=== PATIENT | female | born 1960 | race Hispanic/Latino ===

== ENCOUNTER → 2017-12-21 | Outpatient (CLI) | payer OTHER ==
[2017-12-21 11:30] LABS: BASOPHILS % (AUTO) 1.3 % (0.0-5.0); EOSINOPHILS % (AUTO) 1.7 % (0.0-8.0); HEMATOCRIT 41.3 % (36-48); LYMPHOCYTES % (AUTO) 29.3 % (21.0-51.0); MEAN CORPUSCULAR HEMOGLOBIN 30.1 pg (27.0-33.0); MEAN CORPUSCULAR HGB CONC 33.9 g/dL (32.0-36.0); MEAN CORPUSCULAR VOLUME 88.7 fL (79-99); MONOCYTES % (AUTO) 8.3 % (3.0-13.0); NEUTROPHILS % (AUTO) 59.4 % (40.0-77.0); PLATELET COUNT (AUTO) 219 K/uL (130-400); RED BLOOD CELL COUNT(AUTO) 4.66 MIL/uL (4.00-5.50); RED CELL DISTRIBUTION WIDTH 13.4 % (11.0-15.5); WHITE BLOOD COUNT (AUTO) 6.1 K/uL (4.8-10.8)
[2017-12-21 11:33] LABS: CREATININE,URINE RANDOM 127 mg/dL (30-135)
[2017-12-21 11:49] LABS: HEMOGLOBIN A1C 6.2 % (4.0-6.0)
[2017-12-21 11:53] LABS: ALBUMIN 3.6 g/dL (3.5-5.0); BILIRUBIN,TOTAL 0.4 mg/dL (0.2-1.0); CREATININE 0.7 mg/dL (0.5-1.5); POTASSIUM 3.9 mmol/L (3.5-5.1); TOTAL PROTEIN, SERUM 6.8 g/dL (6.0-8.3)
[2017-12-21 11:54] LABS: BILIRUBIN,URINE NEGATIVE (NEGATIVE); COLOR,URINE YELLOW (YELLOW); GLUCOSE, URINE (UA) NEGATIVE (NEGATIVE); KETONES,URINE NEGATIVE (NEGATIVE); LEUKOCYTE ESTERASE ,URINE MODERATE (NEGATIVE); NITRATE,URINE POSITIVE (NEGATIVE); OCCULT BLOOD,URINE SMALL (NEGATIVE); PROTEIN,URINE NEGATIVE (NEGATIVE); UROBILINOGEN,URINE 0.2 mg/dL (0.2-1.0)
[2017-12-21 12:52] LABS: APPEARANCE,URINE CLOUDY (CLEAR)
[2017-12-21 12:54] LABS: BACTERIA,URINE Many /HPF (None Seen); RBC,URINE 0-1 /HPF (0-1); WBC,URINE TNTC /HPF (0-1)
[2017-12-22 07:23] LABS: HEPATITIS Bs ANTIGEN SCREEN P Negative (Negative)
== END | disposition home or self-care (01) ==
LOC: RAH 10:54
PROVIDERS: ATTEND Internal Medicine
DX: Z12.31 Encounter for screening mammogram for malignant neoplasm of breast (principal); Z02.89 Encounter for other administrative examinations; M54.9 Dorsalgia, unspecified; E04.9 Nontoxic goiter, unspecified; K76.0 Fatty (change of) liver, not elsewhere classified; E78.2 Mixed hyperlipidemia; R31.9 Hematuria, unspecified; R10.9 Unspecified abdominal pain; R73.09 Other abnormal glucose
CPT/HCPCS: 36415; 72072; 72100; 77067; 80053; 80061; 81001; 82043; 82570; 83036; 84443; 85025; 87088; 87186; 87340; 87520

== ENCOUNTER 2018-07-15 19:53 | Observation (INO) | payer OTHER ==
[~2018-07-15] VITALS: Ht 160 cm; Wt 110.2 kg
[2018-07-15 20:48] LABS: BASOPHILS % (AUTO) 1.3 % (0.0-5.0); EOSINOPHILS % (AUTO) 2.7 % (0.0-8.0); HEMATOCRIT 40.7 % (36-48); LYMPHOCYTES % (AUTO) 31.1 % (21.0-51.0); MEAN CORPUSCULAR HEMOGLOBIN 30.8 pg (27.0-33.0); MEAN CORPUSCULAR HGB CONC 34.1 g/dL (32.0-36.0); MEAN CORPUSCULAR VOLUME 90.4 fL (79-99); MONOCYTES % (AUTO) 8.1 % (3.0-13.0); NEUTROPHILS % (AUTO) 56.8 % (40.0-77.0); PLATELET COUNT (AUTO) 234 K/uL (130-400); RED BLOOD CELL COUNT(AUTO) 4.51 MIL/uL (4.00-5.50); RED CELL DISTRIBUTION WIDTH 13.5 % (11.0-15.5); WHITE BLOOD COUNT (AUTO) 8.3 K/uL (4.8-10.8)
[2018-07-15] MEDS ORDERED: NITROGLYCERIN 0.4 MG SL TAB SL ONE (20:48)
[2018-07-15] MEDS ORDERED: ASPIRIN 325 MG TABLET ONE (20:48)
[2018-07-15 20:57] LABS: CREATININE 0.8 mg/dL (0.5-1.5)
[2018-07-15 21:01] LABS: INR 0.95 (0.85-1.15); PARTIAL THROMBOPLASTIN TIME 29.5 SEC (26.3-35.5)
[2018-07-15 21:08] LABS: ALBUMIN 3.8 g/dL (3.5-5.0); BILIRUBIN,TOTAL 0.6 mg/dL (0.2-1.0); TOTAL PROTEIN, SERUM 7.1 g/dL (6.0-8.3)
[2018-07-16 01:26] LABS: CREATINE KINASE, TOTAL 53 U/L (21-232); MYOGLOBIN 24 ng/mL (10-92); TROPONIN I < 0.04 ng/mL (0.00-0.06)
[2018-07-16 05:15] LABS: CREATINE KINASE, TOTAL 61 U/L (21-232); MYOGLOBIN 25 ng/mL (10-92); TROPONIN I < 0.04 ng/mL (0.00-0.06)
[2018-07-16] MEDS ORDERED: ONDANSETRON HCL 4 MG/2 ML VIAL IV PRN (07:15)
[2018-07-16] MEDS ORDERED: ACETAMINOPHEN 325 MG TAB PO PRN (07:15)
[2018-07-16] MEDS ORDERED: POTASSIUM CHLORIDE 20MEQ/100ML 100 ML IV PRN ×2 (07:30)
[2018-07-16] MEDS ORDERED: POTASSIUM CHLORIDE 20 MEQ ERTAB PO PRN (07:30)
[2018-07-16] MEDS ORDERED: LIDOCAINE HCL-MPF 1% 2ML VIAL IVP PRN ×2 (07:30)
[2018-07-16] MEDS ORDERED: POTASSIUM CHLORIDE 10% ELIXIR 20 MEQ/15 ML UDCUP PO PRN (07:30)
[2018-07-16] MEDS ORDERED: CHOL500050 PO (07:57)
[2018-07-16] MEDS ORDERED: LORA10TA7 PO (08:20)
[2018-07-16] MEDS ORDERED: UBID200C37 PO (08:21)
[2018-07-16] MEDS ORDERED: CALC1TAB2 PO (08:22)
[2018-07-16] MEDS: PANTOPRAZOLE SODIUM 40 MG TABLET.DR PO SCH (09:00)
[2018-07-16] MEDS: ENOXAPARIN SODIUM 40 MG/0.4 ML SYRINGE SQ SCH (09:00)
[2018-07-16] MEDS ORDERED: ACETAMINOPHEN 325 MG TAB ONE (12:13)
[2018-07-16 14:16] VITALS: BP 124/69
[2018-07-16] MEDS ORDERED: REGADENOSON 0.4 MG/5 ML PF SYG IVP SCH (15:00)
[2018-07-16 17:00] VITALS: BP 129/80
[2018-07-16 20:00] VITALS: BP 130/60
[2018-07-16] MEDS: ACETAMINOPHEN 325 MG TAB PO PRN (20:21)
[2018-07-16] MEDS ORDERED: NITROGLYCERIN 1GM/1 INCH PACKET TD SCH (21:00)
[2018-07-17] VITALS: BP 99/67
[2018-07-17 03:57] VITALS: BP 116/56
[2018-07-17] MEDS: ACETAMINOPHEN 325 MG TAB PO PRN (06:39)
[2018-07-17 06:45] LABS: APPEARANCE,URINE Cloudy (CLEAR); BILIRUBIN,URINE Negative (NEGATIVE); COLOR,URINE Yellow (YELLOW); GLUCOSE, URINE (UA) Negative (NEGATIVE); KETONES,URINE Trace mg/dL (NEGATIVE); LEUKOCYTE ESTERASE ,URINE Moderate (NEGATIVE); NITRATE,URINE Positive (NEGATIVE); OCCULT BLOOD,URINE Large (NEGATIVE); PROTEIN,URINE Negative (NEGATIVE)
[2018-07-17 07:12] LABS: BACTERIA,URINE Many /HPF (None Seen); RBC,URINE 0-1 /HPF (0-1); SQUAMOUS EPITHELIAL CELL,UR Few /HPF (0-2)
[2018-07-17 08:00] VITALS: BP 97/56
[2018-07-17] MEDS ORDERED: LEVO500T2 PO (08:09)
[2018-07-17] MEDS ORDERED: LEVOFLOXACIN 750 MG TABLET PO SCH (09:00)
[2018-07-17] MEDS ORDERED: ASPIRIN 325MG EC TAB 325 MG TABLET.DR PO SCH (09:00)
[2018-07-17] MEDS: ENOXAPARIN SODIUM 40 MG/0.4 ML SYRINGE SQ SCH (10:04)
[2018-07-17] MEDS: PANTOPRAZOLE SODIUM 40 MG TABLET.DR PO SCH (10:04)
[2018-07-17 12:00] VITALS: BP 115/65
== END 2018-07-17 15:00 | disposition home or self-care (01) ==
LOC: EDH 19:53 → EDHIP 22:44 → 3BH 07-16 13:47
PROVIDERS: ADMIT Internal Medicine; ATTEND Internal Medicine
DX: R07.89 Other chest pain (principal); E78.2 Mixed hyperlipidemia; K21.9 Gastro-esophageal reflux disease without esophagitis; K76.0 Fatty (change of) liver, not elsewhere classified; E01.0 Iodine-deficiency related diffuse (endemic) goiter; E88.81 Metabolic syndrome and other insulin resistance; J30.9 Allergic rhinitis, unspecified; E66.01 Morbid (severe) obesity due to excess calories; M48.56XA Collapsed vertebra, not elsewhere classified, lumbar region, initial encounter for fracture; N39.0 Urinary tract infection, site not specified; Z68.42 Body mass index [BMI] 45.0-49.9, adult; Z82.3 Family history of stroke; Z82.49 Family history of ischemic heart disease and other diseases of the circulatory system; Z90.710 Acquired absence of both cervix and uterus
CPT/HCPCS: 36415; 71045; 78452; 80053; 81001; 82550; 83874; 84484; 85025; 85610; 85730; 93005; 93017; 96372; 96374; A9500; G0378; J1650; J2785

== ENCOUNTER → 2019-02-10 | Outpatient (CLI) | payer OTHER ==
[~2019-02-10] MED LIST: CALC1TAB2 PO; CHOL500050 PO; LEVO500T2 PO; LORA10TA7 PO; UBID200C37 PO
[2019-02-10 08:57] LABS: EOSINOPHILS % (AUTO) 1.5 % (0.0-8.0); LYMPHOCYTES % (AUTO) 27.8 % (21.0-51.0); MEAN CORPUSCULAR HEMOGLOBIN 29.7 pg (27.0-33.0); MEAN CORPUSCULAR HGB CONC 32.9 g/dL (32.0-36.0); MEAN CORPUSCULAR VOLUME 90.2 fL (79-99); MONOCYTES % (AUTO) 8.8 % (3.0-13.0); NEUTROPHILS % (AUTO) 60.9 % (40.0-77.0); PLATELET COUNT (AUTO) 243 K/uL (130-400); RED BLOOD CELL COUNT(AUTO) 4.32 MIL/uL (4.00-5.50); RED CELL DISTRIBUTION WIDTH 13.7 % (11.0-15.5)
[2019-02-10 09:12] LABS: HEMOGLOBIN A1C 6.1 % (4.0-6.0)
[2019-02-10 09:21] LABS: ALBUMIN 3.4 g/dL (3.5-5.0); BILIRUBIN,TOTAL 0.4 mg/dL (0.2-1.0); CREATININE 0.6 mg/dL (0.5-1.5); POTASSIUM 3.6 mmol/L (3.5-5.1); THYROID STIMULATING HORMONE 2.14 uIU/mL (0.36-3.74); TOTAL PROTEIN, SERUM 6.3 g/dL (6.0-8.3)
== END | disposition home or self-care (01) ==
LOC: RAH 08:17
PROVIDERS: ATTEND Internal Medicine
DX: Z12.31 Encounter for screening mammogram for malignant neoplasm of breast (principal); E78.2 Mixed hyperlipidemia; I95.9 Hypotension, unspecified; E04.9 Nontoxic goiter, unspecified; E55.9 Vitamin D deficiency, unspecified; E88.81 Metabolic syndrome and other insulin resistance; R51 Headache
CPT/HCPCS: 36415; 77067; 80053; 80061; 82043; 82306; 82570; 83036; 84443; 85025

== ENCOUNTER → 2019-05-13 | Outpatient (CLI) | payer OTHER ==
[2019-05-13 08:48] LABS: BASOPHILS % (AUTO) 0.4 % (0.0-5.0); EOSINOPHILS % (AUTO) 0.3 % (0.0-8.0); HEMATOCRIT 44.3 % (36-48); MEAN CORPUSCULAR HGB CONC 33.3 g/dL (32.0-36.0); MEAN CORPUSCULAR VOLUME 90.3 fL (79-99); MONOCYTES % (AUTO) 7.8 % (3.0-13.0); NEUTROPHILS % (AUTO) 79.5 % (40.0-77.0); PLATELET COUNT (AUTO) 255 K/uL (130-400); RED CELL DISTRIBUTION WIDTH 14.7 % (11.0-15.5); WHITE BLOOD COUNT (AUTO) 16.4 K/uL (4.8-10.8)
[2019-05-13 09:07] LABS: APPEARANCE,URINE Clear (CLEAR); BILIRUBIN,URINE Negative (NEGATIVE); COLOR,URINE Yellow (YELLOW); GLUCOSE, URINE (UA) Negative (NEGATIVE); KETONES,URINE Negative (NEGATIVE); LEUKOCYTE ESTERASE ,URINE Small (NEGATIVE); NITRATE,URINE Positive (NEGATIVE); OCCULT BLOOD,URINE Small (NEGATIVE); PROTEIN,URINE Negative (NEGATIVE)
[2019-05-13 09:08] LABS: ALBUMIN 3.4 g/dL (3.5-5.0); BILIRUBIN,TOTAL 0.4 mg/dL (0.2-1.0); CREATININE 0.7 mg/dL (0.5-1.5); THYROID STIMULATING HORMONE 1.11 uIU/mL (0.36-3.74); TOTAL PROTEIN, SERUM 6.6 g/dL (6.0-8.3)
[2019-05-13 09:38] LABS: BACTERIA,URINE Many /HPF (None Seen); RBC,URINE 0-1 /HPF (0-1)
[2019-05-13 09:39] LABS: CALCIUM OXALATE CRYSTALS,UR Few /LPF (None Seen); SQUAMOUS EPITHELIAL CELL,UR 0-2 /HPF (0-2)
[2019-05-13 10:07] LABS: ERYTHROCYTE SEDIMENTATION RATE 7 MM/HR (0-30)
== END | disposition home or self-care (01) ==
LOC: RAH 13:31
PROVIDERS: ATTEND Nurse Practitioner Family
DX: R05 Cough (principal); M47.815 Spondylosis without myelopathy or radiculopathy, thoracolumbar region
CPT/HCPCS: 36415; 71250; 80053; 80061; 81001; 84443; 85025; 85651; 87798

== ENCOUNTER 2019-05-24 10:12 | Emergency (ER) | payer OTHER ==
[2019-05-24 10:46] LABS: BILIRUBIN,URINE Negative (NEGATIVE); COLOR,URINE Yellow (YELLOW); GLUCOSE, URINE (UA) Negative (NEGATIVE); KETONES,URINE Negative (NEGATIVE); LEUKOCYTE ESTERASE ,URINE Moderate (NEGATIVE); NITRATE,URINE Positive (NEGATIVE); OCCULT BLOOD,URINE Trace (NEGATIVE); PH,URINE 8.5 (5.0-8.0); PROTEIN,URINE Negative (NEGATIVE)
[2019-05-24 10:48] LABS: APPEARANCE,URINE SLIGHTLY CLOUDY (CLEAR)
[2019-05-24] MEDS ORDERED: ACETAMINOPHEN EXTRA STRENGTH 500 MG TABLET ONE (10:56)
[2019-05-24] MEDS ORDERED: ONDANSETRON HCL 4 MG/2 ML VIAL ONE (10:56)
[2019-05-24] MEDS ORDERED: SODIUM CHLORIDE 0.9% 1000ML 1,000 ML IV ONE ×2 (10:57→11:51)
[2019-05-24 10:59] LABS: BACTERIA,URINE Moderate /HPF (None Seen); RBC,URINE 0-1 /HPF (0-1); SQUAMOUS EPITHELIAL CELL,UR 0-2 /HPF (0-2)
[2019-05-24 11:04] LABS: BASOPHILS % (AUTO) 0.5 % (0.0-5.0); EOSINOPHILS % (AUTO) 0.6 % (0.0-8.0); HEMATOCRIT 42.3 % (36-48); LYMPHOCYTES % (AUTO) 6.1 % (21.0-51.0); MEAN CORPUSCULAR HGB CONC 33.4 g/dL (32.0-36.0); MEAN CORPUSCULAR VOLUME 89.9 fL (79-99); MONOCYTES % (AUTO) 3.4 % (3.0-13.0); NEUTROPHILS % (AUTO) 89.4 % (40.0-77.0); PLATELET COUNT (AUTO) 189 K/uL (130-400); RED BLOOD CELL COUNT(AUTO) 4.71 MIL/uL (4.00-5.50); RED CELL DISTRIBUTION WIDTH 14.5 % (11.0-15.5); WHITE BLOOD COUNT (AUTO) 11.5 K/uL (4.8-10.8)
[2019-05-24] MEDS ORDERED: CEFTRIAXONE SODIUM 1 GM ONE (11:07)
[2019-05-24] MEDS ORDERED: SODIUM CHLORIDE 0.9% 100 ML IV ONE (11:07)
[2019-05-24 11:08] LABS: CREATININE 0.7 mg/dL (0.5-1.5); POTASSIUM 3.9 mmol/L (3.5-5.1)
[2019-05-24 11:13] LABS: ALBUMIN 3.7 g/dL (3.5-5.0); BILIRUBIN,TOTAL 0.7 mg/dL (0.2-1.0); TOTAL PROTEIN, SERUM 6.9 g/dL (6.0-8.3)
[2019-05-24] MEDS ORDERED: DiphenhydrAMINE HCL 50 MG/ML VIAL ONE (12:23)
[2019-05-24] MEDS ORDERED: KETOROLAC TROMETHAMINE 30MG/ML ONE (12:23)
== END 2019-05-24 13:42 | disposition home or self-care (01) ==
LOC: EDH 10:12
DX: N30.00 Acute cystitis without hematuria (principal); E78.00 Pure hypercholesterolemia, unspecified; Z90.710 Acquired absence of both cervix and uterus
CPT/HCPCS: 36415; 71046; 80053; 81001; 83605; 84145; 85025; 87040 ×2; 87077; 87088; 87186; 87804 ×2; 96374; 96375; 99285; J0696; J1200; J1885; J2405; J7030 ×2

== ENCOUNTER → 2020-06-09 | Outpatient (CLI) | payer OTHER | END | disposition home or self-care (01) | LOC: OIH 15:02 | PROVIDERS: ATTEND Internal Medicine | DX: M25.562 Pain in left knee (principal) | CPT/HCPCS: 73562 ==

== ENCOUNTER → 2020-06-10 | Outpatient (CLI) | payer OTHER ==
[2020-06-10 08:28] LABS: BASOPHILS % (AUTO) 1.1 % (0.0-5.0); EOSINOPHILS % (AUTO) 2.9 % (0.0-8.0); HEMATOCRIT 42.3 % (36-48); LYMPHOCYTES % (AUTO) 29.5 % (21.0-51.0); MEAN CORPUSCULAR HEMOGLOBIN 29.7 pg (27.0-33.0); MEAN CORPUSCULAR HGB CONC 32.4 g/dL (32.0-36.0); MEAN CORPUSCULAR VOLUME 91.6 fL (79-99); MONOCYTES % (AUTO) 8.2 % (3.0-13.0); PLATELET COUNT (AUTO) 236 K/uL (130-400); RED BLOOD CELL COUNT(AUTO) 4.62 MIL/uL (4.00-5.50); RED CELL DISTRIBUTION WIDTH 13.3 % (11.0-15.5); WHITE BLOOD COUNT (AUTO) 6.5 K/uL (4.8-10.8)
[2020-06-10 08:49] LABS: ALBUMIN 3.8 g/dL (3.5-5.0); BILIRUBIN,TOTAL 0.5 mg/dL (0.2-1.0); CREATININE 0.8 mg/dL (0.5-1.5); POTASSIUM 4.6 mmol/L (3.5-5.1); THYROID STIMULATING HORMONE 3.37 uIU/mL (0.36-3.74); TOTAL PROTEIN, SERUM 6.8 g/dL (6.0-8.3)
[2020-06-10 08:51] LABS: APPEARANCE,URINE TURBID (CLEAR); BILIRUBIN,URINE SMALL (NEGATIVE); COLOR,URINE YELLOW (YELLOW); GLUCOSE, URINE (UA) NEGATIVE (NEGATIVE); KETONES,URINE 5 mg/dL (NEGATIVE); LEUKOCYTE ESTERASE ,URINE MODERATE (NEGATIVE); NITRATE,URINE POSITIVE (NEGATIVE); OCCULT BLOOD,URINE MODERATE (NEGATIVE); PH,URINE 5.5 (5.0-8.0); PROTEIN,URINE 30 mg/dL (NEGATIVE); UROBILINOGEN,URINE 0.2 mg/dL (0.2-1.0)
[2020-06-10 09:18] LABS: BACTERIA,URINE Many /HPF (None Seen); CALCIUM OXALATE CRYSTALS,UR Few /LPF (None Seen); SQUAMOUS EPITHELIAL CELL,UR Few /HPF (0-2); WBC,URINE >100 /HPF (0-1)
[2020-06-10 09:45] LABS: ERYTHROCYTE SEDIMENTATION RATE 28 MM/HR (0-30)
== END | disposition home or self-care (01) ==
LOC: LAB 07:44
PROVIDERS: ATTEND Nurse Practitioner Family
DX: Z13.220 Encounter for screening for lipoid disorders (principal); Z13.29 Encounter for screening for other suspected endocrine disorder; Z13.21 Encounter for screening for nutritional disorder; J30.2 Other seasonal allergic rhinitis; I10 Essential (primary) hypertension
CPT/HCPCS: 36415; 80053; 80061; 81001; 82306; 84439; 84443; 85025; 85651; 87077; 87088; 87186

== ENCOUNTER → 2020-06-16 | Outpatient (CLI) | payer OTHER | END | disposition home or self-care (01) | LOC: LAB 11:11 | PROVIDERS: ATTEND Nurse Practitioner Family | DX: R50.9 Fever, unspecified (principal); Z20.828 Contact with and (suspected) exposure to other viral communicable diseases | CPT/HCPCS: 36415; C9803; U0003 ==

== ENCOUNTER → 2020-07-16 | Outpatient (CLI) | payer OTHER | END | disposition home or self-care (01) | LOC: RAH 09:40 | PROVIDERS: ATTEND Nurse Practitioner Family | DX: Z12.31 Encounter for screening mammogram for malignant neoplasm of breast (principal) | CPT/HCPCS: 77067 ==

== ENCOUNTER → 2020-09-07 | Outpatient (CLI) | payer OTHER ==
[2020-09-07 08:15] LABS: BASOPHILS % (AUTO) 0.9 % (0.0-5.0); EOSINOPHILS % (AUTO) 2.5 % (0.0-8.0); HEMATOCRIT 41.5 % (36-48); LYMPHOCYTES % (AUTO) 24.4 % (21.0-51.0); MEAN CORPUSCULAR HEMOGLOBIN 29.1 pg (27.0-33.0); MEAN CORPUSCULAR HGB CONC 31.8 g/dL (32.0-36.0); MEAN CORPUSCULAR VOLUME 91.6 fL (79-99); MONOCYTES % (AUTO) 7.8 % (3.0-13.0); NEUTROPHILS % (AUTO) 63.9 % (40.0-77.0); PLATELET COUNT (AUTO) 251 K/uL (130-400); RED BLOOD CELL COUNT(AUTO) 4.53 MIL/uL (4.00-5.50); RED CELL DISTRIBUTION WIDTH 13.2 % (11.0-15.5); WHITE BLOOD COUNT (AUTO) 7.5 K/uL (4.8-10.8)
[2020-09-07 08:53] LABS: ALBUMIN 3.5 g/dL (3.5-5.0); BILIRUBIN,TOTAL 0.3 mg/dL (0.2-1.0); CREATININE 0.8 mg/dL (0.5-1.5); POTASSIUM 4.5 mmol/L (3.5-5.1); TOTAL PROTEIN, SERUM 6.6 g/dL (6.0-8.3)
== END | disposition home or self-care (01) ==
LOC: LAB 07:35
PROVIDERS: ATTEND Internal Medicine Medical Oncology
DX: C7B.8 Other secondary neuroendocrine tumors (principal)
CPT/HCPCS: 36415; 80053; 85025

== ENCOUNTER → 2020-09-22 | Outpatient (CLI) | payer OTHER | END | disposition home or self-care (01) | LOC: RAH 12:53 | PROVIDERS: ATTEND Nurse Practitioner Family | DX: R92.2 Inconclusive mammogram (principal) | CPT/HCPCS: 76641; 77065 ==

== ENCOUNTER 2020-10-04 23:37 | Inpatient (IN) | payer OTHER ==
[~2020-10-04] VITALS: Ht 160 cm; Wt 117.0 kg
[2020-10-04] MEDS ORDERED: CEFTRIAXONE SODIUM 2 GM VIAL ONE (23:56)
[2020-10-04] MEDS ORDERED: ACETAMINOPHEN EXTRA STRENGTH 500 MG TABLET ONE (23:56)
[2020-10-04 23:58] LABS: APPEARANCE,URINE Cloudy (CLEAR); BILIRUBIN,URINE Negative (NEGATIVE); COLOR,URINE Yellow (YELLOW); GLUCOSE, URINE (UA) Negative (NEGATIVE); KETONES,URINE Negative (NEGATIVE); LEUKOCYTE ESTERASE ,URINE Large (NEGATIVE); NITRATE,URINE Positive (NEGATIVE); OCCULT BLOOD,URINE Moderate (NEGATIVE); PROTEIN,URINE Trace mg/dL (NEGATIVE); UROBILINOGEN,URINE 0.2 mg/dL (0.2-1.0)
[2020-10-05 00:08] LABS: BACTERIA,URINE Moderate /HPF (None Seen); WBC,URINE >100 /HPF (0-1)
[2020-10-05 00:30] LABS: CARBON DIOXIDE 26 mmol/L (21-32); CHLORIDE 104 mmol/L (101-111); GLOMERULAR FILTR. RATE CALC 60 mL/min (>60); GLUCOSE,RANDOM 140 mg/dL (70-105); POTASSIUM 4.4 mmol/L (3.5-5.1); SODIUM SERUM 139 mmol/L (136-145); UREA NITROGEN, BLOOD 16 mg/dL (7-18)
[2020-10-05 00:31] LABS: INR 0.95 (0.85-1.15); PROTHROMBIN TIME 10.4 SEC (9.6-11.6)
[2020-10-05 00:32] LABS: PARTIAL THROMBOPLASTIN TIME 25.4 SEC (26.3-35.5)
[2020-10-05 00:39] LABS: BASOPHILS % (AUTO) 0.6 % (0.0-5.0); EOSINOPHILS % (AUTO) 1.3 % (0.0-8.0); HEMATOCRIT 40.5 % (36-48); LYMPHOCYTES % (AUTO) 12.2 % (21.0-51.0); MEAN CORPUSCULAR HEMOGLOBIN 29.1 pg (27.0-33.0); MEAN CORPUSCULAR HGB CONC 32.1 g/dL (32.0-36.0); MEAN CORPUSCULAR VOLUME 90.6 fL (79-99); MONOCYTES % (AUTO) 6.4 % (3.0-13.0); NEUTROPHILS % (AUTO) 78.9 % (40.0-77.0); PLATELET COUNT (AUTO) 297 K/uL (130-400); RED BLOOD CELL COUNT(AUTO) 4.47 MIL/uL (4.00-5.50); RED CELL DISTRIBUTION WIDTH 13.1 % (11.0-15.5); WHITE BLOOD COUNT (AUTO) 13.5 K/uL (4.8-10.8)
[2020-10-05 00:41] LABS: ALANINE AMINOTRANSFERASE 24 U/L (12-78); ALBUMIN 3.7 g/dL (3.5-5.0); ASPARTATE AMINOTRANSFERASE 18 U/L (10-37); BILIRUBIN,TOTAL 0.2 mg/dL (0.2-1.0); CREATINE KINASE, TOTAL 53 U/L (21-232); MYOGLOBIN 19 ng/mL (10-92); TOTAL PROTEIN, SERUM 6.9 g/dL (6.0-8.3); TROPONIN I < 0.04 ng/mL (0.00-0.06)
[2020-10-05 01:02] LABS: B-TYPE NATRIURETIC PEPTIDE 9 pg/mL (0-100)
[2020-10-05] MEDS ORDERED: SODIUM CHLORIDE 0.9% 1000ML 1,000 ML IV ONE ×2 (01:25→05:51)
[2020-10-05] MEDS ORDERED: ONDANSETRON HCL 4 MG/2 ML VIAL ONE (01:58)
[2020-10-05] MEDS ORDERED: MORPHINE SULFATE 4 MG/1ML SYG ONE (01:58)
[2020-10-05] MEDS ORDERED: HYDROMORPHONE 1 MG/1 ML AMP IV PRN (02:45)
[2020-10-05] MEDS ORDERED: MORPHINE SULFATE 2 MG/ML 1ML SYG IV PRN (02:45)
[2020-10-05] MEDS ORDERED: LACTULOSE 20 GM/30 ML UDCUP PO PRN (02:45)
[2020-10-05] MEDS ORDERED: NITROGLYCERIN 0.4 MG SL TAB SL PRN (02:45)
[2020-10-05] MEDS ORDERED: MAG HYDROX/AL HYDROX/SIMETH ES 30 ML SUSP UDCUP PO PRN (02:45)
[2020-10-05] MEDS ORDERED: DIPHENHYDRAMINE HCL 25 MG CAPSULE PO PRN (02:45)
[2020-10-05] MEDS ORDERED: ACETAMINOPHEN 325 MG TAB PO PRN ×2 (02:45)
[2020-10-05] MEDS ORDERED: GUAIFENESIN-DM 200/20 MG 10 ML PO PRN (02:45)
[2020-10-05] MEDS ORDERED: DiphenhydrAMINE HCL 50 MG/ML VIAL IV PRN (02:45)
[2020-10-05] MEDS ORDERED: ONDANSETRON HCL 4 MG/2 ML VIAL IV PRN (02:45)
[2020-10-05] MEDS ORDERED: ZOSYN 3.375GM+NS 50ML 50 ML IV SCH (05:00)
[2020-10-05] MEDS ORDERED: MORPHINE SULFATE 2 MG/ML 1ML SYG ONE (05:00)
[2020-10-05] MEDS ORDERED: DiphenhydrAMINE HCL 50 MG/ML VIAL ONE (05:50)
[2020-10-05] MEDS ORDERED: METHYLPREDNISOLONE SOD SUCC 125MG/2ML VIAL ONE ×2 (05:53→05:54)
[2020-10-05] MEDS ORDERED: EPINEPHRINE 1 MG/ML AMPULE ONE (05:53)
[2020-10-05] MEDS ORDERED: IPRATROPIUM/ALBUTEROL SULFATE 3 ML SOLUTION IH ONE (05:55)
[2020-10-05 06:25] LABS: BASOPHILS % (AUTO) 0.4 % (0.0-5.0); EOSINOPHILS % (AUTO) 0.6 % (0.0-8.0); HEMATOCRIT 39.9 % (36-48); LYMPHOCYTES % (AUTO) 28.4 % (21.0-51.0); MEAN CORPUSCULAR HEMOGLOBIN 28.8 pg (27.0-33.0); MEAN CORPUSCULAR HGB CONC 31.6 g/dL (32.0-36.0); MEAN CORPUSCULAR VOLUME 91.3 fL (79-99); MONOCYTES % (AUTO) 0.4 % (3.0-13.0); NEUTROPHILS % (AUTO) 69.6 % (40.0-77.0); PLATELET COUNT (AUTO) 221 K/uL (130-400); RED BLOOD CELL COUNT(AUTO) 4.37 MIL/uL (4.00-5.50); RED CELL DISTRIBUTION WIDTH 13.2 % (11.0-15.5); WHITE BLOOD COUNT (AUTO) 5.3 K/uL (4.8-10.8)
[2020-10-05 06:57] LABS: ALBUMIN 3.4 g/dL (3.5-5.0); BILIRUBIN,TOTAL 0.5 mg/dL (0.2-1.0); CREATININE 1.2 mg/dL (0.5-1.5); POTASSIUM 4.2 mmol/L (3.5-5.1); TOTAL PROTEIN, SERUM 6.5 g/dL (6.0-8.3)
[2020-10-05] MEDS ORDERED: PHARMACY COMMUNICATION MISC SCH (07:45)
[2020-10-05] MEDS ORDERED: LACTATED RINGERS 1000ML 500 ML IV ONE (08:00)
[2020-10-05] MEDS ORDERED: ENOXAPARIN SODIUM 30 MG/0.3 ML SQ ONE (08:07)
[2020-10-05] MEDS ORDERED: METRONIDAZOLE 500MG/100ML BAG 100 ML ONE ×2 (08:08→16:52)
[2020-10-05] MEDS ORDERED: FAMOTIDINE/PF 20 MG/2 ML VIAL IV ONE (08:08)
[2020-10-05] MEDS ORDERED: LACTATED RINGERS 1000ML 1,000 ML IV ONE ×3 (08:09→18:08)
[2020-10-05] MEDS ORDERED: METRONIDAZOLE 500MG/100ML BAG 100 ML IVPB SCH (08:15)
[2020-10-05 08:19] LABS: ABG BASE EXCESS -4.7 mmol/L (-2.0-3.0); ABG HCO3 18.7 mmol/L (21.0-28.0); ABG OXYGEN SATURATION 93.2 % (95.0-99.0); ABG PCO2 30 mmHg (32-45)
[2020-10-05] MEDS ORDERED: LEVOFLOXACIN 250 MG/D5W 50ML 50 ML IVPB SCH (09:00)
[2020-10-05] MEDS ORDERED: PANT40TA54 PO (12:27)
[2020-10-05] MEDS: LACTATED RINGERS 1000ML 1,000 ML IV SCH (12:45)
[2020-10-05] MEDS ORDERED: SODIUM CHLORIDE 0.9% 100 ML IV ONE (16:52)
[2020-10-05] MEDS ORDERED: MEROPENEM 1 GM VIAL ONE (16:52)
[2020-10-05] MEDS ORDERED: ACETAMINOPHEN 325 MG TAB ONE (18:49)
[2020-10-06] VITALS (12 sets, daily range): BP systolic 85–117; BP diastolic 42–63
[2020-10-06] MEDS ORDERED: MEROPENEM 1 GM VIAL ONE (02:07)
[2020-10-06] MEDS ORDERED: METRONIDAZOLE 500MG/100ML BAG 100 ML ONE (02:07)
[2020-10-06] MEDS ORDERED: LACTATED RINGERS 1000ML 1,000 ML IV ONE (02:08)
[2020-10-06] MEDS: MEROPENEM 1 GM VIAL IVP SCH ×3 (02:45→19:39)
[2020-10-06] MEDS: LACTATED RINGERS 1000ML 1,000 ML IV SCH ×3 (06:26→23:03)
[2020-10-06 06:50] LABS: BASOPHILS % (AUTO) 0.1 % (0.0-5.0); EOSINOPHILS % (AUTO) 0.1 % (0.0-8.0); HEMATOCRIT 34.8 % (36-48); MEAN CORPUSCULAR HEMOGLOBIN 28.6 pg (27.0-33.0); MEAN CORPUSCULAR HGB CONC 31.6 g/dL (32.0-36.0); MEAN CORPUSCULAR VOLUME 90.6 fL (79-99); MONOCYTES % (AUTO) 6.2 % (3.0-13.0); NEUTROPHILS % (AUTO) 86.7 % (40.0-77.0); PLATELET COUNT (AUTO) 205 K/uL (130-400); RED BLOOD CELL COUNT(AUTO) 3.84 MIL/uL (4.00-5.50); RED CELL DISTRIBUTION WIDTH 13.6 % (11.0-15.5); WHITE BLOOD COUNT (AUTO) 17.4 K/uL (4.8-10.8)
[2020-10-06 07:08] LABS: BILIRUBIN,TOTAL 0.5 mg/dL (0.2-1.0); CREATININE 0.7 mg/dL (0.5-1.5); TOTAL PROTEIN, SERUM 6.2 g/dL (6.0-8.3)
[2020-10-06 07:15] LABS: CRP QUANTITATIVE 179.9 mg/L (0.00-9.0)
[2020-10-06] MEDS ORDERED: LIDOCAINE HCL 1% MDV 50ML VIAL ONE (12:28)
[2020-10-06] MEDS ORDERED: SODIUM BICARB 50MEQ 50ML VIAL 50 ML ONE (12:29)
[2020-10-06] MEDS ORDERED: IODIXANOL 320 MG/ML 100 ML VIAL ONE (12:36)
[2020-10-06] MEDS ORDERED: MIDAZOLAM HCL 1 MG/ML 2ML VIAL ONE (13:13)
[2020-10-06] MEDS ORDERED: FENTANYL CITRATE PF 50 MCG/1 ML 2ML VIAL ONE ×2 (13:13→14:07)
[2020-10-06] MEDS ORDERED: KETOROLAC TROMETHAMINE 30MG/ML ONE ×2 (17:13→23:00)
[2020-10-06] MEDS ORDERED: HYDROMORPHONE HCL 0.5 MG/0.5 ML ML IVP PRN (17:15)
[2020-10-07] MEDS: MEROPENEM 1 GM VIAL IVP SCH ×2 (02:26→10:46)
[2020-10-07 04:00] VITALS: BP 135/72
[2020-10-07 04:49] LABS: BASOPHILS % (AUTO) 0.3 % (0.0-5.0); EOSINOPHILS % (AUTO) 1.4 % (0.0-8.0); HEMATOCRIT 34.7 % (36-48); MEAN CORPUSCULAR HGB CONC 32.3 g/dL (32.0-36.0); MEAN CORPUSCULAR VOLUME 89.9 fL (79-99); MONOCYTES % (AUTO) 7.9 % (3.0-13.0); NEUTROPHILS % (AUTO) 77.7 % (40.0-77.0); PLATELET COUNT (AUTO) 192 K/uL (130-400); RED BLOOD CELL COUNT(AUTO) 3.86 MIL/uL (4.00-5.50); RED CELL DISTRIBUTION WIDTH 13.4 % (11.0-15.5); WHITE BLOOD COUNT (AUTO) 11.7 K/uL (4.8-10.8)
[2020-10-07 05:10] LABS: ALBUMIN 2.8 g/dL (3.5-5.0); BILIRUBIN,TOTAL 0.4 mg/dL (0.2-1.0); CREATININE 0.7 mg/dL (0.5-1.5); CRP QUANTITATIVE 111.5 mg/L (0.00-9.0); TOTAL PROTEIN, SERUM 5.9 g/dL (6.0-8.3)
[2020-10-07 08:18] VITALS: BP 144/75
[2020-10-07] MEDS: KETOROLAC TROMETHAMINE 15MG/ML IV PRN ×3 (09:18→21:35)
[2020-10-07 12:03] VITALS: BP 110/65
[2020-10-07] MEDS: LACTATED RINGERS 1000ML 1,000 ML IV SCH (15:40)
[2020-10-07 16:43] VITALS: BP 133/74
[2020-10-07 21:55] VITALS: BP 135/76
[2020-10-08 01:24] VITALS: BP 139/66
[2020-10-08] MEDS: KETOROLAC TROMETHAMINE 15MG/ML IV PRN (04:21)
[2020-10-08 04:37] LABS: BASOPHILS % (AUTO) 0.6 % (0.0-5.0); EOSINOPHILS % (AUTO) 2.1 % (0.0-8.0); HEMATOCRIT 36.7 % (36-48); LYMPHOCYTES % (AUTO) 19.6 % (21.0-51.0); MEAN CORPUSCULAR HEMOGLOBIN 28.6 pg (27.0-33.0); MEAN CORPUSCULAR HGB CONC 32.2 g/dL (32.0-36.0); MEAN CORPUSCULAR VOLUME 88.9 fL (79-99); MONOCYTES % (AUTO) 7.8 % (3.0-13.0); PLATELET COUNT (AUTO) 219 K/uL (130-400); RED BLOOD CELL COUNT(AUTO) 4.13 MIL/uL (4.00-5.50); RED CELL DISTRIBUTION WIDTH 13.2 % (11.0-15.5); WHITE BLOOD COUNT (AUTO) 8.7 K/uL (4.8-10.8)
[2020-10-08 04:57] LABS: ALBUMIN 2.8 g/dL (3.5-5.0); BILIRUBIN,TOTAL 0.3 mg/dL (0.2-1.0); CREATININE 0.6 mg/dL (0.5-1.5); CRP QUANTITATIVE 86.7 mg/L (0.00-9.0); POTASSIUM 4.1 mmol/L (3.5-5.1)
[2020-10-08 06:05] VITALS: BP 140/72
[2020-10-08 08:11] VITALS: BP 140/66
[2020-10-08] MEDS ORDERED: LEVOFLOXACIN 750 MG/D5W 150 ML 150 ML IV SCH (09:00)
[2020-10-08] MEDS ORDERED: TRAMADOL HCL 50 MG TABLET PO PRN (10:00)
[2020-10-08 12:27] VITALS: BP 137/58
[2020-10-08] MEDS ORDERED: ONDANSETRON HCL 4 MG/2 ML VIAL IVP PRN (16:00)
[2020-10-08 16:24] VITALS: BP 135/59
== END 2020-10-08 18:15 | disposition home or self-care (01) | DRG 872 ==
LOC: EDH 23:37 → EDHIP 10-05 02:38 → 4BH 10-06 05:52
PROVIDERS: ADMIT Family Medicine; ATTEND Family Medicine
PROC: 0T9030Z Drainage of Right Kidney with Drainage Device, Percutaneous Approach (ICD-10-PCS; principal; 2020-10-06)
DX: A41.50 Gram-negative sepsis, unspecified (principal); N13.6 Pyonephrosis; Z68.42 Body mass index [BMI] 45.0-49.9, adult; N17.9 Acute kidney failure, unspecified; T88.6XXA Anaphylactic reaction due to adverse effect of correct drug or medicament properly administered, initial encounter; I10 Essential (primary) hypertension; E78.5 Hyperlipidemia, unspecified; Z20.822 Contact with and (suspected) exposure to COVID-19; Z87.891 Personal history of nicotine dependence; E78.00 Pure hypercholesterolemia, unspecified; Z90.2 Acquired absence of lung [part of]; Z85.118 Personal history of other malignant neoplasm of bronchus and lung; E11.9 Type 2 diabetes mellitus without complications; B96.1 Klebsiella pneumoniae [K. pneumoniae] as the cause of diseases classified elsewhere; E66.01 Morbid (severe) obesity due to excess calories; T36.0X5A Adverse effect of penicillins, initial encounter; Y92.89 Other specified places as the place of occurrence of the external cause; Z87.442 Personal history of urinary calculi
CPT/HCPCS: 10030; 36415; 36600; 50432; 71045; 74176; 80053; 81001; 82550; 82803; 82948; 83605; 83874; 83880; 84145; 84484; 85025; 85610; 85730; 86140; 86900; 86901; 87040; 87071; 87077; 87088; 87186; 87205; 87426; 93005; 99156; 99157; C1729; C1769; G0378; J0171; J0696; J1200; J1644; J1650; J1885; J1956; J2185; J2250; J2270; J2405; J2930; J3010; J3490; J7030; J7120; Q9967

== ENCOUNTER → 2020-10-21 | Outpatient (CLI) | payer OTHER ==
[~2020-10-21] MED LIST changes: -CALC1TAB2 PO; -CHOL500050 PO; -LEVO500T2 PO; +PANT40TA54 PO; -UBID200C37 PO
[2020-10-21 13:38] LABS: BASOPHILS % (AUTO) 2.1 % (0.0-5.0); EOSINOPHILS % (AUTO) 5.4 % (0.0-8.0); HEMATOCRIT 39.9 % (36-48); LYMPHOCYTES % (AUTO) 28.9 % (21.0-51.0); MEAN CORPUSCULAR HEMOGLOBIN 28.9 pg (27.0-33.0); MEAN CORPUSCULAR HGB CONC 32.3 g/dL (32.0-36.0); MEAN CORPUSCULAR VOLUME 89.3 fL (79-99); MONOCYTES % (AUTO) 8.7 % (3.0-13.0); NEUTROPHILS % (AUTO) 54.3 % (40.0-77.0); PLATELET COUNT (AUTO) 300 K/uL (130-400); RED BLOOD CELL COUNT(AUTO) 4.47 MIL/uL (4.00-5.50); RED CELL DISTRIBUTION WIDTH 13.2 % (11.0-15.5); WHITE BLOOD COUNT (AUTO) 6.7 K/uL (4.8-10.8)
[2020-10-21 14:20] LABS: ALBUMIN 3.5 g/dL (3.5-5.0); BILIRUBIN,TOTAL 0.4 mg/dL (0.2-1.0); CREATININE 0.7 mg/dL (0.5-1.5); POTASSIUM 4.2 mmol/L (3.5-5.1); TOTAL PROTEIN, SERUM 7.4 g/dL (6.0-8.3)
[2020-10-21 14:41] LABS: ERYTHROCYTE SEDIMENTATION RATE 33 MM/HR (0-30)
== END | disposition home or self-care (01) ==
LOC: LAB 13:00
PROVIDERS: ATTEND Nurse Practitioner Family
DX: A41.9 Sepsis, unspecified organism (principal); N20.0 Calculus of kidney
CPT/HCPCS: 36415; 80053; 85025; 85651

== ENCOUNTER → 2020-10-28 | Outpatient (CLI) | payer OTHER | END | disposition home or self-care (01) | LOC: RAH 13:06 | PROVIDERS: ATTEND Urology | DX: N20.0 Calculus of kidney (principal); I87.8 Other specified disorders of veins | CPT/HCPCS: 74018; 76100 ==

== ENCOUNTER 2020-11-04 12:18 | Day surgery (SDC) | payer OTHER ==
[2020-10-28 15:50] LABS: BASOPHILS % (AUTO) 1.3 % (0.0-5.0); EOSINOPHILS % (AUTO) 4.6 % (0.0-8.0); HEMATOCRIT 41.7 % (36-48); LYMPHOCYTES % (AUTO) 26.8 % (21.0-51.0); MEAN CORPUSCULAR HEMOGLOBIN 28.7 pg (27.0-33.0); MEAN CORPUSCULAR HGB CONC 31.9 g/dL (32.0-36.0); MEAN CORPUSCULAR VOLUME 90.1 fL (79-99); MONOCYTES % (AUTO) 7.2 % (3.0-13.0); NEUTROPHILS % (AUTO) 59.7 % (40.0-77.0); PLATELET COUNT (AUTO) 296 K/uL (130-400); RED BLOOD CELL COUNT(AUTO) 4.63 MIL/uL (4.00-5.50); RED CELL DISTRIBUTION WIDTH 13.3 % (11.0-15.5); WHITE BLOOD COUNT (AUTO) 7.5 K/uL (4.8-10.8)
[2020-10-28 15:53] LABS: APPEARANCE,URINE Clear (CLEAR); BILIRUBIN,URINE Negative (NEGATIVE); COLOR,URINE Yellow (YELLOW); GLUCOSE, URINE (UA) Negative (NEGATIVE); KETONES,URINE Negative (NEGATIVE); LEUKOCYTE ESTERASE ,URINE Small (NEGATIVE); NITRATE,URINE Negative (NEGATIVE); OCCULT BLOOD,URINE Large (NEGATIVE); PH,URINE 5.5 (5.0-8.0); PROTEIN,URINE Negative (NEGATIVE); UROBILINOGEN,URINE 0.2 mg/dL (0.2-1.0)
[2020-10-28 16:05] LABS: BACTERIA,URINE Rare /HPF (None Seen)
[2020-10-28 16:06] LABS: MUCUS,URINE Rare LPF (None Seen); SQUAMOUS EPITHELIAL CELL,UR Few /HPF (0-2)
[2020-10-28 16:06] LABS: INR 0.98 (0.85-1.15); PROTHROMBIN TIME 10.7 SEC (9.6-11.6)
[2020-10-28 16:08] LABS: PARTIAL THROMBOPLASTIN TIME 27.6 SEC (26.3-35.5)
[2020-10-28 16:13] LABS: BILIRUBIN,TOTAL 0.5 mg/dL (0.2-1.0); CREATININE 0.7 mg/dL (0.5-1.5); POTASSIUM 3.9 mmol/L (3.5-5.1); TOTAL PROTEIN, SERUM 7.4 g/dL (6.0-8.3)
[~2020-11-04] VITALS: Ht 101.6 cm; Wt 114.0 kg
[2020-11-04] VITALS (13 sets, daily range): BP systolic 120–144; BP diastolic 64–80
[~2020-11-04 12:18] MED LIST changes: +CEFAZOLIN SODIUM 1 GM VIAL IVP SCH; +LACTATED RINGERS 1000ML 1,000 ML IV SCH; -LORA10TA7 PO; -PANT40TA54 PO
[2020-11-04] MEDS: LACTATED RINGERS 1000ML 1,000 ML IV SCH ×3 (12:29→16:28)
[2020-11-04] MEDS: LEVOFLOXACIN 500 MG/D5W 100 ML 100 ML IV PRN ×2 (12:29→15:23)
[2020-11-04] MEDS ORDERED: SUCCINYLCHOLINE 200MG/10ML SYR ONE (14:09)
[2020-11-04] MEDS ORDERED: ONDANSETRON HCL 4 MG/2 ML VIAL ONE (14:09)
[2020-11-04] MEDS ORDERED: MIDAZOLAM HCL 1 MG/ML 2ML VIAL ONE (14:09)
[2020-11-04] MEDS ORDERED: DEXAMETHASONE SOD PHOSPHATE 10MG/ML 1ML VIAL ONE (14:09)
[2020-11-04] MEDS ORDERED: LIDOCAINE PF 2% 5ML ABBOJECT ONE (14:09)
[2020-11-04] MEDS ORDERED: PROPOFOL 10 MG/ML 20ML VIAL IV ONE (14:09)
[2020-11-04] MEDS ORDERED: GLYCOPYRROLATE 1 MG/5 ML SYRINGE ONE (14:09)
[2020-11-04] MEDS ORDERED: NEOSTIGMINE 5MG/5ML SYR IV ONE (14:09)
[2020-11-04] MEDS ORDERED: ROCURONIUM 10MG/1ML SYR 10 MG/ML ML ONE (14:10)
[2020-11-04] MEDS ORDERED: FENTANYL CITRATE PF 50 MCG/1 ML 2ML VIAL ONE (14:10)
[2020-11-04] MEDS ORDERED: VANCOMYCIN 500MG+NS 100ML 100 ML IV PRN (16:15)
== END 2020-11-04 18:00 | disposition home or self-care (01) ==
LOC: DAH 12:18
PROVIDERS: ATTEND Urology
DX: N20.2 Calculus of kidney with calculus of ureter (principal); E66.01 Morbid (severe) obesity due to excess calories; Z85.118 Personal history of other malignant neoplasm of bronchus and lung; Z79.899 Other long term (current) drug therapy; Z20.828 Contact with and (suspected) exposure to other viral communicable diseases; Z79.01 Long term (current) use of anticoagulants
CPT/HCPCS: 36415; 50590; 71046; 80053; 81001; 85025; 85610; 85730; 87077; 87088; 87186; 93005; A4215; A4221; A4222; A4223; A4663; C9803; J0330; J1100; J2001; J2250; J2405; J2704; J2710; J3010; J3490; J7120 ×3; U0003; J1956

== ENCOUNTER → 2020-11-17 | Outpatient (CLI) | payer OTHER | END | disposition home or self-care (01) | LOC: RAH 15:32 | PROVIDERS: ATTEND Urology | DX: N20.0 Calculus of kidney (principal); Z87.442 Personal history of urinary calculi | CPT/HCPCS: 74018; 76100 ==

== ENCOUNTER 2020-11-22 14:49 | Inpatient (IN) | payer OTHER ==
[~2020-11-22] VITALS: Ht 160 cm; Wt 115.2 kg
[2020-11-22] MEDS ORDERED: KETOROLAC TROMETHAMINE 30MG/ML ONE (16:40)
[2020-11-22 16:55] LABS: BASOPHILS % (AUTO) 0.6 % (0.0-5.0); EOSINOPHILS % (AUTO) 2.2 % (0.0-8.0); HEMATOCRIT 40.8 % (36-48); LYMPHOCYTES % (AUTO) 9.8 % (21.0-51.0); MEAN CORPUSCULAR HEMOGLOBIN 29.1 pg (27.0-33.0); MEAN CORPUSCULAR HGB CONC 33.3 g/dL (32.0-36.0); MEAN CORPUSCULAR VOLUME 87.2 fL (79-99); MONOCYTES % (AUTO) 5.8 % (3.0-13.0); PLATELET COUNT (AUTO) 304 K/uL (130-400); RED BLOOD CELL COUNT(AUTO) 4.68 MIL/uL (4.00-5.50); RED CELL DISTRIBUTION WIDTH 13.4 % (11.0-15.5); WHITE BLOOD COUNT (AUTO) 12.5 K/uL (4.8-10.8)
[2020-11-22 17:02] LABS: CREATININE 0.7 mg/dL (0.5-1.5); POTASSIUM 3.9 mmol/L (3.5-5.1)
[2020-11-22 17:03] LABS: APPEARANCE,URINE Cloudy (CLEAR); BILIRUBIN,URINE Negative (NEGATIVE); COLOR,URINE Yellow (YELLOW); GLUCOSE, URINE (UA) Negative (NEGATIVE); KETONES,URINE Negative (NEGATIVE); LEUKOCYTE ESTERASE ,URINE Large (NEGATIVE); NITRATE,URINE Positive (NEGATIVE); OCCULT BLOOD,URINE Moderate (NEGATIVE); PH,URINE 5.5 (5.0-8.0); PROTEIN,URINE Negative (NEGATIVE)
[2020-11-22 17:06] LABS: ALBUMIN 3.7 g/dL (3.5-5.0); BILIRUBIN,TOTAL 0.6 mg/dL (0.2-1.0); TOTAL PROTEIN, SERUM 7.5 g/dL (6.0-8.3)
[2020-11-22 17:16] LABS: BACTERIA,URINE Few /HPF (None Seen); SQUAMOUS EPITHELIAL CELL,UR Few /HPF (0-2)
[2020-11-22] MEDS ORDERED: LEVOFLOXACIN 500 MG/D5W 100 ML 100 ML ONE (17:59)
[2020-11-22] MEDS ORDERED: ACETAMINOPHEN 325 MG TAB PO PRN (20:00)
[2020-11-22] MEDS ORDERED: LACTULOSE 20 GM/30 ML UDCUP PO PRN (20:00)
[2020-11-22] MEDS ORDERED: DIPHENHYDRAMINE HCL 25 MG CAPSULE PO PRN (20:00)
[2020-11-22] MEDS ORDERED: LACTATED RINGERS 1000ML 1,000 ML IV SCH (20:00)
[2020-11-22] MEDS ORDERED: ONDANSETRON HCL 4 MG/2 ML VIAL IV PRN (20:00)
[2020-11-22] MEDS ORDERED: MAG HYDROX/AL HYDROX/SIMETH ES 30 ML SUSP UDCUP PO PRN (20:00)
[2020-11-22] MEDS ORDERED: NITROGLYCERIN 0.4 MG SL TAB SL PRN (20:00)
[2020-11-22] MEDS ORDERED: DiphenhydrAMINE HCL 50 MG/ML VIAL IV PRN (20:00)
[2020-11-22] MEDS ORDERED: HEPARIN SODIUM 5000UNIT/ML 1ML VIAL ONE (21:11)
[2020-11-22] MEDS ORDERED: FAMOTIDINE 20MG TAB 20 MG TAB ONE (21:11)
[2020-11-22] MEDS ORDERED: DOXYCYCLINE 100MG+NS 250ML 250 ML IV ONE (21:11)
[2020-11-22] MEDS ORDERED: TRAMADOL HCL 50 MG TABLET ONE (21:12)
[2020-11-22] MEDS: FAMOTIDINE 20MG TAB 20 MG TAB PO SCH (22:05)
[2020-11-22] MEDS: HEPARIN SODIUM 5000UNIT/ML 1ML VIAL SQ SCH (22:05)
[2020-11-22 23:23] VITALS: BP 143/69
[2020-11-23 00:18] VITALS: BP 137/64
[2020-11-23] MEDS: ACETAMINOPHEN 325 MG TAB PO PRN (01:56)
[2020-11-23] MEDS: GUAIFENESIN-DM 200/20 MG 10 ML PO PRN ×2 (02:13→23:50)
[2020-11-23 04:36] VITALS: BP 126/47
[2020-11-23 07:25] VITALS: BP 124/64
[2020-11-23] MEDS: DOXYCYCLINE 100MG+NS 250ML 250 ML IV SCH ×2 (07:26→18:24)
[2020-11-23] MEDS ORDERED: LEVOFLOXACIN 750 MG/D5W 150 ML 150 ML IV SCH (09:00)
[2020-11-23] MEDS: IMMUNE DEFENSE PO SCH ×2 (09:00→14:11)
[2020-11-23] MEDS: CETIRIZINE HCL 5 MG TABLET PO SCH (09:05)
[2020-11-23] MEDS: TRAMADOL HCL 50 MG TABLET PO PRN (09:06)
[2020-11-23] MEDS: PANTOPRAZOLE SODIUM 40 MG TABLET.DR PO SCH (09:06)
[2020-11-23] MEDS: FAMOTIDINE 20MG TAB 20 MG TAB PO SCH ×2 (09:06→21:38)
[2020-11-23] MEDS: HEPARIN SODIUM 5000UNIT/ML 1ML VIAL SQ SCH ×2 (09:37→21:40)
[2020-11-23 11:18] VITALS: BP 124/58
[2020-11-23 12:41] LABS: BASOPHILS % (AUTO) 0.8 % (0.0-5.0); EOSINOPHILS % (AUTO) 3.2 % (0.0-8.0); HEMATOCRIT 34.2 % (36-48); LYMPHOCYTES % (AUTO) 22.2 % (21.0-51.0); MEAN CORPUSCULAR HEMOGLOBIN 28.9 pg (27.0-33.0); MEAN CORPUSCULAR HGB CONC 32.7 g/dL (32.0-36.0); MEAN CORPUSCULAR VOLUME 88.4 fL (79-99); NEUTROPHILS % (AUTO) 61.3 % (40.0-77.0); PLATELET COUNT (AUTO) 226 K/uL (130-400); RED BLOOD CELL COUNT(AUTO) 3.87 MIL/uL (4.00-5.50); RED CELL DISTRIBUTION WIDTH 13.4 % (11.0-15.5); WHITE BLOOD COUNT (AUTO) 7.4 K/uL (4.8-10.8)
[2020-11-23 13:03] LABS: CREATININE 0.3 mg/dL (0.5-1.5); POTASSIUM 3.6 mmol/L (3.5-5.1)
[2020-11-23] MEDS ORDERED: NAPROXEN 500 MG TABLET PO SCH (13:30)
[2020-11-23 16:25] VITALS: BP 126/60
[2020-11-23 19:32] VITALS: BP 107/62
[2020-11-23] MEDS ORDERED: [UNRECOGNIZED DRUG - OTHER] PO (23:59)
[2020-11-24] VITALS (7 sets, daily range): BP systolic 117–152; BP diastolic 57–93
[2020-11-24] MEDS: KETOROLAC TROMETHAMINE 15MG/ML IV SCH ×2 (02:22→20:29)
[2020-11-24] MEDS: LACTATED RINGERS 1000ML 1,000 ML IV SCH ×3 (02:22→22:15)
[2020-11-24 05:35] LABS: EOSINOPHILS % (AUTO) 5.3 % (0.0-8.0); HEMATOCRIT 36.5 % (36-48); LYMPHOCYTES % (AUTO) 23.3 % (21.0-51.0); MEAN CORPUSCULAR HEMOGLOBIN 28.1 pg (27.0-33.0); MEAN CORPUSCULAR HGB CONC 31.5 g/dL (32.0-36.0); MEAN CORPUSCULAR VOLUME 89.2 fL (79-99); MONOCYTES % (AUTO) 9.2 % (3.0-13.0); NEUTROPHILS % (AUTO) 60.8 % (40.0-77.0); PLATELET COUNT (AUTO) 244 K/uL (130-400); RED BLOOD CELL COUNT(AUTO) 4.09 MIL/uL (4.00-5.50); RED CELL DISTRIBUTION WIDTH 13.2 % (11.0-15.5)
[2020-11-24 05:38] LABS: INR 1.06 (0.85-1.15); PROTHROMBIN TIME 11.5 SEC (9.6-11.6)
[2020-11-24 05:39] LABS: PARTIAL THROMBOPLASTIN TIME 30.1 SEC (26.3-35.5)
[2020-11-24 05:42] LABS: CREATININE 0.7 mg/dL (0.5-1.5); POTASSIUM 3.9 mmol/L (3.5-5.1)
[2020-11-24] MEDS: DOXYCYCLINE 100MG+NS 250ML 250 ML IV SCH (06:37)
[2020-11-24] MEDS: HEPARIN SODIUM 5000UNIT/ML 1ML VIAL SQ SCH ×2 (09:00→20:59)
[2020-11-24] MEDS: CETIRIZINE HCL 5 MG TABLET PO SCH (09:00)
[2020-11-24] MEDS: FAMOTIDINE 20MG TAB 20 MG TAB PO SCH ×2 (09:00→20:53)
[2020-11-24] MEDS: PANTOPRAZOLE SODIUM 40 MG TABLET.DR PO SCH (09:00)
[2020-11-24] MEDS: IMMUNE DEFENSE PO SCH (09:00)
[2020-11-24] MEDS: MEROPENEM 1 GM VIAL IVP SCH ×2 (10:14→17:28)
[2020-11-24] MEDS ORDERED: LIDOCAINE HCL 1% MDV 50ML VIAL ONE (10:26)
[2020-11-24] MEDS ORDERED: IODIXANOL 320 MG/ML 100 ML VIAL ONE (10:26)
[2020-11-24] MEDS ORDERED: ROCURONIUM 10MG/1ML SYR 10 MG/ML ML ONE (10:51)
[2020-11-24] MEDS ORDERED: PHENYLEPHRINE HCL 10 MG/ML 1ML VIAL IV ONE (10:51)
[2020-11-24] MEDS ORDERED: LIDOCAINE PF 2% 5ML ABBOJECT ONE (10:51)
[2020-11-24] MEDS ORDERED: PROPOFOL 10 MG/ML 20ML VIAL IV ONE (10:51)
[2020-11-24] MEDS ORDERED: EPHEDRINE SULFATE 50 MG/ML AMPULE ONE (10:51)
[2020-11-24] MEDS ORDERED: SUCCINYLCHOLINE CHLORIDE 20 MG/ML 10 ML VIAL ONE (10:51)
[2020-11-24] MEDS ORDERED: FENTANYL CITRATE PF 50 MCG/1 ML 2ML VIAL ONE ×2 (10:52→12:30)
[2020-11-24] MEDS ORDERED: KETAMINE 50MG/ML SYRINGE 50 MG/ML DISP.SYRIN IV ONE (11:13)
[2020-11-24] MEDS ORDERED: MIDAZOLAM HCL 1 MG/ML 2ML VIAL ONE ×3 (11:18→12:44)
[2020-11-24] MEDS: TRAMADOL HCL 50 MG TABLET PO PRN ×2 (13:59→21:27)
[2020-11-24] MEDS: ACETAMINOPHEN 325 MG TAB PO PRN (19:05)
[2020-11-25] MEDS: MEROPENEM 1 GM VIAL IVP SCH ×3 (01:50→18:12)
[2020-11-25 02:00] VITALS: BP 122/54
[2020-11-25] MEDS: TRAMADOL HCL 50 MG TABLET PO PRN ×3 (03:45→19:46)
[2020-11-25] MEDS: LACTATED RINGERS 1000ML 1,000 ML IV SCH (04:51)
[2020-11-25 07:50] VITALS: BP 137/64
[2020-11-25 09:07] LABS: BASOPHILS % (AUTO) 0.7 % (0.0-5.0); EOSINOPHILS % (AUTO) 1.3 % (0.0-8.0); HEMATOCRIT 35.2 % (36-48); LYMPHOCYTES % (AUTO) 15.3 % (21.0-51.0); MEAN CORPUSCULAR HEMOGLOBIN 28.6 pg (27.0-33.0); MEAN CORPUSCULAR VOLUME 86.7 fL (79-99); MONOCYTES % (AUTO) 10.2 % (3.0-13.0); NEUTROPHILS % (AUTO) 71.8 % (40.0-77.0); PLATELET COUNT (AUTO) 272 K/uL (130-400); RED BLOOD CELL COUNT(AUTO) 4.06 MIL/uL (4.00-5.50); RED CELL DISTRIBUTION WIDTH 13.2 % (11.0-15.5); WHITE BLOOD COUNT (AUTO) 9.2 K/uL (4.8-10.8)
[2020-11-25 09:28] LABS: CREATININE 0.7 mg/dL (0.5-1.5)
[2020-11-25] MEDS: FAMOTIDINE 20MG TAB 20 MG TAB PO SCH ×2 (09:46→21:26)
[2020-11-25] MEDS: CETIRIZINE HCL 5 MG TABLET PO SCH (09:46)
[2020-11-25] MEDS: PANTOPRAZOLE SODIUM 40 MG TABLET.DR PO SCH (09:46)
[2020-11-25] MEDS: HEPARIN SODIUM 5000UNIT/ML 1ML VIAL SQ SCH ×2 (09:48→21:28)
[2020-11-25] MEDS: IMMUNE DEFENSE PO SCH (09:50)
[2020-11-25 11:25] VITALS: BP 119/56
[2020-11-25 16:20] VITALS: BP 123/61
[2020-11-25 19:46] VITALS: BP 133/76
[2020-11-25] MEDS ORDERED: MORPHINE SULFATE 2 MG/ML 1ML SYG IM PRN (22:00)
[2020-11-25] MEDS: ACETAMINOPHEN 325 MG TAB PO PRN (22:34)
[2020-11-25] MEDS: GUAIFENESIN-DM 200/20 MG 10 ML PO PRN (23:03)
[2020-11-25 23:32] VITALS: BP 152/86
[2020-11-26] VITALS (7 sets, daily range): BP systolic 122–136; BP diastolic 74–82
[2020-11-26] MEDS: LACTATED RINGERS 1000ML 1,000 ML IV SCH ×4 (00:15→22:06)
[2020-11-26] MEDS: MEROPENEM 1 GM VIAL IVP SCH ×3 (01:32→18:32)
[2020-11-26] MEDS: TRAMADOL HCL 50 MG TABLET PO PRN ×2 (02:14→22:25)
[2020-11-26] MEDS: ACETAMINOPHEN 325 MG TAB PO PRN ×2 (05:20→15:34)
[2020-11-26] MEDS: HEPARIN SODIUM 5000UNIT/ML 1ML VIAL SQ SCH ×2 (09:24→21:05)
[2020-11-26] MEDS: PANTOPRAZOLE SODIUM 40 MG TABLET.DR PO SCH (09:27)
[2020-11-26] MEDS: CETIRIZINE HCL 5 MG TABLET PO SCH (09:27)
[2020-11-26] MEDS: FAMOTIDINE 20MG TAB 20 MG TAB PO SCH ×2 (09:27→21:03)
[2020-11-26] MEDS: GUAIFENESIN-DM 200/20 MG 10 ML PO PRN (18:39)
[2020-11-26] MEDS: NAPROXEN 500 MG TABLET PO PRN (21:05)
[2020-11-27] MEDS: MEROPENEM 1 GM VIAL IVP SCH ×3 (01:59→17:19)
[2020-11-27 02:30] VITALS: BP 141/64
[2020-11-27] MEDS: CETIRIZINE HCL 5 MG TABLET PO SCH (08:44)
[2020-11-27] MEDS: PANTOPRAZOLE SODIUM 40 MG TABLET.DR PO SCH (08:44)
[2020-11-27] MEDS: FAMOTIDINE 20MG TAB 20 MG TAB PO SCH ×2 (08:44→19:47)
[2020-11-27] MEDS: HEPARIN SODIUM 5000UNIT/ML 1ML VIAL SQ SCH ×2 (08:46→19:57)
[2020-11-27 08:57] VITALS: BP 130/77
[2020-11-27] MEDS: IMMUNE DEFENSE PO SCH (09:00)
[2020-11-27] MEDS: LACTATED RINGERS 1000ML 1,000 ML IV SCH ×2 (09:04→17:54)
[2020-11-27 11:55] VITALS: BP 135/81
[2020-11-27 15:45] VITALS: BP 112/77
[2020-11-27 17:30] VITALS: BP 144/62
[2020-11-27] MEDS: GUAIFENESIN-DM 200/20 MG 10 ML PO PRN (19:47)
[2020-11-27] MEDS ORDERED: NAPROXEN 250 MG TAB ONE (19:50)
[2020-11-27 20:04] VITALS: BP 133/57
[2020-11-28] VITALS (7 sets, daily range): BP systolic 103–138; BP diastolic 35–52
[2020-11-28] MEDS: MEROPENEM 1 GM VIAL IVP SCH ×3 (00:52→18:07)
[2020-11-28] MEDS: LACTATED RINGERS 1000ML 1,000 ML IV SCH ×2 (03:12→16:05)
[2020-11-28 05:39] LABS: BASOPHILS % (AUTO) 0.9 % (0.0-5.0); EOSINOPHILS % (AUTO) 10.4 % (0.0-8.0); HEMATOCRIT 33.5 % (36-48); MEAN CORPUSCULAR HGB CONC 31.6 g/dL (32.0-36.0); MEAN CORPUSCULAR VOLUME 88.4 fL (79-99); NEUTROPHILS % (AUTO) 55.1 % (40.0-77.0); PLATELET COUNT (AUTO) 293 K/uL (130-400); RED BLOOD CELL COUNT(AUTO) 3.79 MIL/uL (4.00-5.50); RED CELL DISTRIBUTION WIDTH 13.2 % (11.0-15.5); WHITE BLOOD COUNT (AUTO) 6.5 K/uL (4.8-10.8)
[2020-11-28 05:55] LABS: ALBUMIN 2.5 g/dL (3.5-5.0); BILIRUBIN,TOTAL 0.3 mg/dL (0.2-1.0); CREATININE 0.5 mg/dL (0.5-1.5); CRP QUANTITATIVE 117.8 mg/L (0.00-9.0); POTASSIUM 3.8 mmol/L (3.5-5.1); TOTAL PROTEIN, SERUM 5.7 g/dL (6.0-8.3)
[2020-11-28 06:42] LABS: ERYTHROCYTE SEDIMENTATION RATE 74 MM/HR (0-30)
[2020-11-28] MEDS: IMMUNE DEFENSE PO SCH (09:00)
[2020-11-28] MEDS: FAMOTIDINE 20MG TAB 20 MG TAB PO SCH ×2 (09:44→19:55)
[2020-11-28] MEDS: PANTOPRAZOLE SODIUM 40 MG TABLET.DR PO SCH (09:44)
[2020-11-28] MEDS: CETIRIZINE HCL 5 MG TABLET PO SCH (09:44)
[2020-11-28] MEDS: HEPARIN SODIUM 5000UNIT/ML 1ML VIAL SQ SCH ×2 (09:46→19:56)
[2020-11-28] MEDS: GUAIFENESIN-DM 200/20 MG 10 ML PO PRN (09:57)
[2020-11-28] MEDS: NAPROXEN 500 MG TABLET PO PRN (16:26)
[2020-11-29] VITALS (14 sets, daily range): BP systolic 103–140; BP diastolic 37–89
[2020-11-29] MEDS: MEROPENEM 1 GM VIAL IVP SCH ×3 (01:02→18:41)
[2020-11-29] MEDS: LACTATED RINGERS 1000ML 1,000 ML IV SCH ×3 (01:03→20:03)
[2020-11-29 05:34] LABS: BASOPHILS % (AUTO) 1.2 % (0.0-5.0); EOSINOPHILS % (AUTO) 11.5 % (0.0-8.0); HEMATOCRIT 31.5 % (36-48); LYMPHOCYTES % (AUTO) 25.3 % (21.0-51.0); MEAN CORPUSCULAR HEMOGLOBIN 29.1 pg (27.0-33.0); MONOCYTES % (AUTO) 9.4 % (3.0-13.0); NEUTROPHILS % (AUTO) 52.1 % (40.0-77.0); PLATELET COUNT (AUTO) 263 K/uL (130-400); RED BLOOD CELL COUNT(AUTO) 3.58 MIL/uL (4.00-5.50); RED CELL DISTRIBUTION WIDTH 13.4 % (11.0-15.5); WHITE BLOOD COUNT (AUTO) 5.7 K/uL (4.8-10.8)
[2020-11-29 06:02] LABS: ALBUMIN 2.5 g/dL (3.5-5.0); BILIRUBIN,TOTAL 0.3 mg/dL (0.2-1.0); CREATININE 0.5 mg/dL (0.5-1.5); POTASSIUM 3.8 mmol/L (3.5-5.1); TOTAL PROTEIN, SERUM 5.4 g/dL (6.0-8.3)
[2020-11-29] MEDS: HEPARIN SODIUM 5000UNIT/ML 1ML VIAL SQ SCH ×2 (09:00→20:04)
[2020-11-29] MEDS: IMMUNE DEFENSE PO SCH (09:00)
[2020-11-29] MEDS: CETIRIZINE HCL 5 MG TABLET PO SCH (09:00)
[2020-11-29] MEDS: FAMOTIDINE 20MG TAB 20 MG TAB PO SCH ×2 (09:00→20:03)
[2020-11-29] MEDS: PANTOPRAZOLE SODIUM 40 MG TABLET.DR PO SCH (09:00)
[2020-11-29] MEDS ORDERED: IODIXANOL 320 MG/ML 100 ML VIAL ONE (12:20)
[2020-11-29] MEDS ORDERED: LIDOCAINE HCL 1% MDV 50ML VIAL ONE (12:21)
[2020-11-29 12:42] LABS: PROTHROMBIN TIME 10.9 SEC (9.6-11.6)
[2020-11-29 12:43] LABS: PARTIAL THROMBOPLASTIN TIME 26.2 SEC (26.3-35.5)
[2020-11-29] MEDS: GUAIFENESIN-DM 200/20 MG 10 ML PO PRN (21:33)
[2020-11-30 00:24] VITALS: BP 106/50
[2020-11-30] MEDS: MEROPENEM 1 GM VIAL IVP SCH ×2 (01:09→09:49)
[2020-11-30 04:24] VITALS: BP 134/70
[2020-11-30 05:50] LABS: BASOPHILS % (AUTO) 1.2 % (0.0-5.0); EOSINOPHILS % (AUTO) 9.9 % (0.0-8.0); LYMPHOCYTES % (AUTO) 27.1 % (21.0-51.0); MEAN CORPUSCULAR HEMOGLOBIN 27.6 pg (27.0-33.0); MEAN CORPUSCULAR HGB CONC 31.4 g/dL (32.0-36.0); MONOCYTES % (AUTO) 8.6 % (3.0-13.0); NEUTROPHILS % (AUTO) 52.3 % (40.0-77.0); PLATELET COUNT (AUTO) 348 K/uL (130-400); RED BLOOD CELL COUNT(AUTO) 4.09 MIL/uL (4.00-5.50); RED CELL DISTRIBUTION WIDTH 13.4 % (11.0-15.5)
[2020-11-30 06:17] LABS: ALBUMIN 2.8 g/dL (3.5-5.0); BILIRUBIN,TOTAL 0.3 mg/dL (0.2-1.0); CREATININE 0.7 mg/dL (0.5-1.5); CRP QUANTITATIVE 53.3 mg/L (0.00-9.0); POTASSIUM 4.1 mmol/L (3.5-5.1); TOTAL PROTEIN, SERUM 6.1 g/dL (6.0-8.3)
[2020-11-30 06:42] LABS: ERYTHROCYTE SEDIMENTATION RATE 52 MM/HR (0-30)
[2020-11-30 07:46] VITALS: BP 130/59
[2020-11-30] MEDS: IMMUNE DEFENSE PO SCH (09:00)
[2020-11-30] MEDS: FAMOTIDINE 20MG TAB 20 MG TAB PO SCH (09:49)
[2020-11-30] MEDS: CETIRIZINE HCL 5 MG TABLET PO SCH (09:49)
[2020-11-30] MEDS: PANTOPRAZOLE SODIUM 40 MG TABLET.DR PO SCH (09:49)
[2020-11-30] MEDS: HEPARIN SODIUM 5000UNIT/ML 1ML VIAL SQ SCH (10:00)
[2020-11-30 11:23] VITALS: BP 130/59
[2020-11-30] MEDS: NAPROXEN 500 MG TABLET PO PRN (12:13)
[2020-11-30 15:50] VITALS: BP 140/63
== END 2020-11-30 17:00 | disposition home or self-care (01) | DRG 654 ==
LOC: EDH 14:49 → EDHIP 19:55 → WSH 22:08 → 3CH 11-27 17:52
PROVIDERS: ADMIT Family Medicine; ATTEND Family Medicine
PROC: 0T9030Z Drainage of Right Kidney with Drainage Device, Percutaneous Approach (ICD-10-PCS; principal; 2020-11-22)
PROC: 0T7B3DZ Dilation of Bladder with Intraluminal Device, Percutaneous Approach (ICD-10-PCS; 2020-11-29)
PROC: 0TP5X0Z Removal of Drainage Device from Kidney, External Approach (ICD-10-PCS; 2020-11-29)
DX: N13.6 Pyonephrosis (principal); Z16.24 Resistance to multiple antibiotics; Z68.42 Body mass index [BMI] 45.0-49.9, adult; E11.9 Type 2 diabetes mellitus without complications; E66.9 Obesity, unspecified; E78.00 Pure hypercholesterolemia, unspecified; E78.5 Hyperlipidemia, unspecified; I10 Essential (primary) hypertension; Z85.118 Personal history of other malignant neoplasm of bronchus and lung; Z87.442 Personal history of urinary calculi; Z87.891 Personal history of nicotine dependence; Z90.710 Acquired absence of both cervix and uterus; Z93.6 Other artificial openings of urinary tract status; Z88.0 Allergy status to penicillin; Z20.822 Contact with and (suspected) exposure to COVID-19
CPT/HCPCS: 36415; 50431; 50693; 74176; 80048; 80053; 81001; 83690; 84145; 84484; 85025; 85610; 85651; 85730; 86140; 87077; 87088; 87186; 87426; 93005; C1725; C1729; C1769; C1773; C1894; G0378; J0330; J1644; J1885; J1956; J2001; J2185; J2250; J2370; J2704; J3010; J3490; J7120; Q9967; U0003

== ENCOUNTER 2020-12-01 09:21 | Day surgery (SDC) | payer OTHER ==
[~2020-12-01 09:21] MED LIST changes: -CEFAZOLIN SODIUM 1 GM VIAL IVP SCH; -LACTATED RINGERS 1000ML 1,000 ML IV SCH; +[UNRECOGNIZED DRUG - OTHER] PO
[2020-12-01 09:50] VITALS: BP 129/54
[2020-12-01] MEDS ORDERED: PHARMACY COMMUNICATION MISC SCH (10:00)
[2020-12-01] MEDS ORDERED: SODIUM CHLORIDE 0.9% IV SCH (10:25)
[2020-12-01] MEDS ORDERED: ERTAPENEM SODIUM IV SCH (10:25)
[2020-12-01 13:50] VITALS: BP 124/62
== END 2020-12-01 14:05 | disposition home or self-care (01) ==
LOC: DAH 09:21
PROVIDERS: ATTEND Internal Medicine
DX: A49.8 Other bacterial infections of unspecified site (principal); I10 Essential (primary) hypertension; E78.00 Pure hypercholesterolemia, unspecified; E11.9 Type 2 diabetes mellitus without complications; Z87.891 Personal history of nicotine dependence; Z90.710 Acquired absence of both cervix and uterus; Z79.899 Other long term (current) drug therapy
CPT/HCPCS: 96365; 96366; A4216; A4222; A4223 ×2; A4663; J1335

== ENCOUNTER 2020-12-02 08:49 | Day surgery (SDC) | payer OTHER ==
[~2020-12-02] VITALS: Ht 160 cm; Wt 113.2 kg
[2020-12-02 09:07] VITALS: BP 123/55
[2020-12-02] MEDS ORDERED: INVANZ 1GM+NS 50ML IVPB 50 ML IV ONE (09:38)
[2020-12-02 10:40] VITALS: BP 128/62
[2020-12-03] MEDS ORDERED: ERTAPENEM SODIUM IM SCH (09:00)
[2020-12-03] MEDS ORDERED: SODIUM CHLORIDE 0.9% IM SCH (09:00)
== END 2020-12-02 10:45 | disposition home or self-care (01) ==
LOC: DAH 08:49
PROVIDERS: ATTEND Internal Medicine
DX: A49.8 Other bacterial infections of unspecified site (principal); I10 Essential (primary) hypertension; E78.00 Pure hypercholesterolemia, unspecified; E11.9 Type 2 diabetes mellitus without complications; Z87.891 Personal history of nicotine dependence; Z79.899 Other long term (current) drug therapy; Z90.710 Acquired absence of both cervix and uterus
CPT/HCPCS: 96365; A4216; A4222; A4223; A4606; A4663; J1335

== ENCOUNTER 2020-12-03 08:20 | Day surgery (SDC) | payer OTHER ==
[~2020-12-03] VITALS: Ht 160 cm; Wt 113.4 kg
[2020-12-03 08:56] VITALS: BP 135/65
[2020-12-03] MEDS ORDERED: ERTAPENEM SODIUM IV SCH (09:45)
[2020-12-03] MEDS ORDERED: SODIUM CHLORIDE 0.9% IV SCH (09:45)
[2020-12-03 11:20] VITALS: BP 128/64
== END 2020-12-03 11:25 | disposition home or self-care (01) ==
LOC: DAH 08:20
PROVIDERS: ATTEND Internal Medicine
DX: A49.8 Other bacterial infections of unspecified site (principal); N20.0 Calculus of kidney; I10 Essential (primary) hypertension; E78.00 Pure hypercholesterolemia, unspecified; E11.9 Type 2 diabetes mellitus without complications; E78.5 Hyperlipidemia, unspecified; Z79.01 Long term (current) use of anticoagulants; Z90.710 Acquired absence of both cervix and uterus; Z79.899 Other long term (current) drug therapy; Z87.891 Personal history of nicotine dependence
CPT/HCPCS: 74176; 96365; A4223; A4606; A4663; J1335

== ENCOUNTER 2020-12-06 09:06 | Day surgery (SDC) | payer OTHER ==
[~2020-12-06] VITALS: Ht 160 cm; Wt 113.4 kg
[2020-12-06 09:30] VITALS: BP 140/69
[2020-12-06] MEDS ORDERED: [UNRECOGNIZED DRUG - OTHER] IV SCH (09:45)
[2020-12-06] MEDS ORDERED: ERTAPENEM SODIUM IV SCH (09:45)
[2020-12-06] MEDS ORDERED: PANT40TA54 PO (10:56)
[2020-12-06] MEDS ORDERED: CETI-89 PO (10:57)
[2020-12-07] MEDS ORDERED: ERTAPENEM SODIUM IV SCH (08:00)
[2020-12-07] MEDS ORDERED: [UNRECOGNIZED DRUG - OTHER] IV SCH (08:00)
== END 2020-12-06 11:00 | disposition home or self-care (01) ==
LOC: DAH 09:06
PROVIDERS: ATTEND Internal Medicine
DX: N39.0 Urinary tract infection, site not specified (principal); B96.20 Unspecified Escherichia coli [E. coli] as the cause of diseases classified elsewhere; I10 Essential (primary) hypertension; E78.5 Hyperlipidemia, unspecified; E78.00 Pure hypercholesterolemia, unspecified; E11.9 Type 2 diabetes mellitus without complications; Z87.891 Personal history of nicotine dependence; Z79.899 Other long term (current) drug therapy; Z90.710 Acquired absence of both cervix and uterus; Z85.118 Personal history of other malignant neoplasm of bronchus and lung
CPT/HCPCS: 96365; A4216; J1335; 96523

== ENCOUNTER 2020-12-07 09:56 | Observation (INO) | payer OTHER ==
[2020-12-03 12:42] LABS: BASOPHILS % (AUTO) 1.1 % (0.0-5.0); EOSINOPHILS % (AUTO) 7.9 % (0.0-8.0); HEMATOCRIT 37.7 % (36-48); LYMPHOCYTES % (AUTO) 29.3 % (21.0-51.0); MEAN CORPUSCULAR HEMOGLOBIN 28.6 pg (27.0-33.0); MEAN CORPUSCULAR HGB CONC 32.4 g/dL (32.0-36.0); MEAN CORPUSCULAR VOLUME 88.5 fL (79-99); MONOCYTES % (AUTO) 8.2 % (3.0-13.0); NEUTROPHILS % (AUTO) 52.4 % (40.0-77.0); PLATELET COUNT (AUTO) 352 K/uL (130-400); RED BLOOD CELL COUNT(AUTO) 4.26 MIL/uL (4.00-5.50); RED CELL DISTRIBUTION WIDTH 13.6 % (11.0-15.5); WHITE BLOOD COUNT (AUTO) 7.9 K/uL (4.8-10.8)
[2020-12-03 12:45] LABS: APPEARANCE,URINE CLEAR (CLEAR); BILIRUBIN,URINE NEGATIVE (NEGATIVE); COLOR,URINE YELLOW (YELLOW); GLUCOSE, URINE (UA) NEGATIVE (NEGATIVE); KETONES,URINE NEGATIVE (NEGATIVE); LEUKOCYTE ESTERASE ,URINE MODERATE (NEGATIVE); NITRATE,URINE NEGATIVE (NEGATIVE); OCCULT BLOOD,URINE LARGE (NEGATIVE); PH,URINE 7.5 (5.0-8.0); PROTEIN,URINE 100 mg/dL (NEGATIVE); UROBILINOGEN,URINE 0.2 mg/dL (0.2-1.0)
[2020-12-03 13:03] LABS: ALBUMIN 3.5 g/dL (3.5-5.0); BILIRUBIN,TOTAL 0.3 mg/dL (0.2-1.0); CREATININE 0.7 mg/dL (0.5-1.5); POTASSIUM 4.2 mmol/L (3.5-5.1); TOTAL PROTEIN, SERUM 6.9 g/dL (6.0-8.3)
[2020-12-03 13:53] LABS: RBC,URINE 26-50 /HPF (0-1)
[2020-12-03 13:54] LABS: BACTERIA,URINE Few /HPF (None Seen)
[2020-12-03 14:28] LABS: INR 0.99 (0.85-1.15); PARTIAL THROMBOPLASTIN TIME 25.9 SEC (26.3-35.5); PROTHROMBIN TIME 10.3 SEC (9.6-11.6)
[~2020-12-07] VITALS: Ht 160 cm; Wt 113.2 kg
[2020-12-07] VITALS (24 sets, daily range): BP systolic 101–140; BP diastolic 57–75
[~2020-12-07 09:56] MED LIST changes: +CETI-89 PO; +ERTAPENEM SODIUM IM SCH; +PANT40TA54 PO; +SODIUM CHLORIDE 0.9% IM SCH
[2020-12-07] MEDS ORDERED: LACTATED RINGERS 1000ML 1,000 ML IV ONE (10:30)
[2020-12-07] MEDS ORDERED: IOHEXOL-350 50ML VIAL IV ONE (10:47)
[2020-12-07] MEDS ORDERED: NEOSTIGMINE 5MG/5ML SYR IV ONE (11:43)
[2020-12-07] MEDS ORDERED: MIDAZOLAM HCL 1 MG/ML 2ML VIAL ONE (11:43)
[2020-12-07] MEDS ORDERED: GLYCOPYRROLATE 1 MG/5 ML SYRINGE ONE (11:43)
[2020-12-07] MEDS ORDERED: FENTANYL CITRATE PF 50 MCG/1 ML 2ML VIAL ONE (11:43)
[2020-12-07] MEDS ORDERED: SUCCINYLCHOLINE 200MG/10ML SYR ONE (11:43)
[2020-12-07] MEDS ORDERED: ROCURONIUM 10MG/1ML SYR 10 MG/ML ML ONE (11:43)
[2020-12-07] MEDS ORDERED: DEXAMETHASONE SOD PHOSPHATE 10MG/ML 1ML VIAL ONE (11:43)
[2020-12-07] MEDS ORDERED: PROPOFOL 10 MG/ML 20ML VIAL IV ONE (11:43)
[2020-12-07] MEDS ORDERED: ONDANSETRON HCL 4 MG/2 ML VIAL ONE (11:43)
[2020-12-07] MEDS ORDERED: LIDOCAINE PF 2% 5ML ABBOJECT ONE (11:43)
[2020-12-07] MEDS ORDERED: MEPERIDINE-PF 25 MG/ML SYG ONE (14:09)
[2020-12-07] MEDS ORDERED: NON-FORMULARY MEDICATION 1 EACH (Cetirizine HCl (Zyrtec) 10 MG) PO PRN (16:45)
[2020-12-07] MEDS ORDERED: ACETAMINOPHEN-CODEINE 300/30MG TAB PO PRN (17:30)
[2020-12-07] MEDS ORDERED: ACETAMINOPHEN 325 MG TAB PO PRN (17:30)
[2020-12-07] MEDS ORDERED: MEPERIDINE-PF 75 MG/ML SYG IM PRN (17:30)
[2020-12-07] MEDS: MEROPENEM 1 GM VIAL IVP SCH (17:54)
[2020-12-07] MEDS: LACTATED RINGERS 1000ML 1,000 ML IV SCH (17:54)
[2020-12-08] VITALS: BP 100/49
[2020-12-08] MEDS: MEROPENEM 1 GM VIAL IVP SCH ×3 (00:40→16:38)
[2020-12-08] MEDS: LACTATED RINGERS 1000ML 1,000 ML IV SCH ×3 (03:45→13:05)
[2020-12-08 04:00] VITALS: BP 114/56
[2020-12-08 05:42] LABS: BASOPHILS % (AUTO) 0.9 % (0.0-5.0); HEMATOCRIT 34.1 % (36-48); LYMPHOCYTES % (AUTO) 19.4 % (21.0-51.0); MEAN CORPUSCULAR HEMOGLOBIN 28.5 pg (27.0-33.0); MONOCYTES % (AUTO) 6.9 % (3.0-13.0); NEUTROPHILS % (AUTO) 65.3 % (40.0-77.0); PLATELET COUNT (AUTO) 268 K/uL (130-400); RED BLOOD CELL COUNT(AUTO) 3.83 MIL/uL (4.00-5.50); RED CELL DISTRIBUTION WIDTH 13.6 % (11.0-15.5); WHITE BLOOD COUNT (AUTO) 8.7 K/uL (4.8-10.8)
[2020-12-08 06:00] LABS: CREATININE 0.6 mg/dL (0.5-1.5); POTASSIUM 4.2 mmol/L (3.5-5.1)
[2020-12-08 08:14] VITALS: BP 113/55
[2020-12-08] MEDS ORDERED: PANTOPRAZOLE SODIUM 40 MG TABLET.DR PO SCH (09:00)
[2020-12-08] MEDS ORDERED: CETIRIZINE HCL 5 MG TABLET PO PRN (09:00)
[2020-12-08 12:00] VITALS: BP 130/58
[2020-12-08 16:42] VITALS: BP 123/61
== END 2020-12-08 17:30 | disposition home or self-care (01) ==
LOC: DAH 09:56 → DAHIP 09:57 → 3AH 16:01
PROVIDERS: ADMIT Urology; ATTEND Urology
DX: N20.2 Calculus of kidney with calculus of ureter (principal); Z20.822 Contact with and (suspected) exposure to COVID-19; E78.00 Pure hypercholesterolemia, unspecified; Z85.118 Personal history of other malignant neoplasm of bronchus and lung; Z90.2 Acquired absence of lung [part of]; Z79.899 Other long term (current) drug therapy; Z88.3 Allergy status to other anti-infective agents
CPT/HCPCS: 36415 ×2; 52353; 71046; 74420; 80048; 80053; 81001; 82360; 85025 ×2; 85610; 85730; 87088; 93005; 96361 ×2; 96365; 96366; 96375; 96376; A4215; A4221; A4222; A4223; A4354; A4358; A4649; A4663; C1751; C1758; C1769 ×3; C1894; C2617; C9803; G0378 ×27; J0330; J1100; J2001; J2175; J2185 ×3; J2250; J2405; J2704; J2710; J3010; J3490; J7030; J7120 ×3; Q9967; U0003; J1335

== ENCOUNTER 2020-12-09 09:00 | Day surgery (SDC) | payer OTHER ==
[~2020-12-09 09:00] MED LIST changes: -ERTAPENEM SODIUM IM SCH; -SODIUM CHLORIDE 0.9% IM SCH
[2020-12-09 09:56] VITALS: BP 147/65
[2020-12-09] MEDS ORDERED: INVANZ 1GM+NS 50ML IVPB 50 ML IV SCH (10:00)
[2020-12-09 11:05] VITALS: BP 120/63
== END 2020-12-09 11:23 | disposition home or self-care (01) ==
LOC: DAH 09:00
PROVIDERS: ATTEND Internal Medicine
DX: A49.8 Other bacterial infections of unspecified site (principal); I10 Essential (primary) hypertension; E11.9 Type 2 diabetes mellitus without complications; E78.00 Pure hypercholesterolemia, unspecified; E78.5 Hyperlipidemia, unspecified; E66.01 Morbid (severe) obesity due to excess calories; Z16.12 Extended spectrum beta lactamase (ESBL) resistance; Z79.899 Other long term (current) drug therapy; Z79.01 Long term (current) use of anticoagulants; Z87.891 Personal history of nicotine dependence; Z68.42 Body mass index [BMI] 45.0-49.9, adult; Z90.710 Acquired absence of both cervix and uterus; Z85.118 Personal history of other malignant neoplasm of bronchus and lung; Z90.2 Acquired absence of lung [part of]
CPT/HCPCS: 96365; A4216; A4223; A4606; A4663; J1335

== ENCOUNTER 2020-12-10 09:20 | Day surgery (SDC) | payer OTHER ==
[~2020-12-10] VITALS: Ht 160 cm; Wt 113.4 kg
[2020-12-10] MEDS ORDERED: INVANZ 1GM+NS 50ML IVPB 50 ML IV SCH (09:45)
[2020-12-10 09:52] VITALS: BP 155/72
== END 2020-12-10 11:04 | disposition home or self-care (01) ==
LOC: DAH 09:20
PROVIDERS: ATTEND Internal Medicine
DX: A49.8 Other bacterial infections of unspecified site (principal); I10 Essential (primary) hypertension; E11.9 Type 2 diabetes mellitus without complications; E78.00 Pure hypercholesterolemia, unspecified; E78.5 Hyperlipidemia, unspecified; E66.01 Morbid (severe) obesity due to excess calories; Z16.12 Extended spectrum beta lactamase (ESBL) resistance; Z79.899 Other long term (current) drug therapy; Z79.01 Long term (current) use of anticoagulants; Z87.891 Personal history of nicotine dependence; Z68.42 Body mass index [BMI] 45.0-49.9, adult; Z85.118 Personal history of other malignant neoplasm of bronchus and lung; Z90.2 Acquired absence of lung [part of]; Z90.710 Acquired absence of both cervix and uterus
CPT/HCPCS: 96365; A4215; A4216; A4221; A4222; A4223 ×3; A4606; A4663; A6402; J1335

== ENCOUNTER → 2020-12-17 | Outpatient (CLI) | payer OTHER ==
[2020-12-17 13:59] LABS: BASOPHILS % (AUTO) 1.4 % (0.0-5.0); EOSINOPHILS % (AUTO) 6.3 % (0.0-8.0); HEMATOCRIT 39.3 % (36-48); LYMPHOCYTES % (AUTO) 26.5 % (21.0-51.0); MEAN CORPUSCULAR HEMOGLOBIN 28.7 pg (27.0-33.0); MEAN CORPUSCULAR HGB CONC 32.3 g/dL (32.0-36.0); MEAN CORPUSCULAR VOLUME 88.9 fL (79-99); NEUTROPHILS % (AUTO) 56.3 % (40.0-77.0); PLATELET COUNT (AUTO) 287 K/uL (130-400); RED BLOOD CELL COUNT(AUTO) 4.42 MIL/uL (4.00-5.50); RED CELL DISTRIBUTION WIDTH 14.2 % (11.0-15.5); WHITE BLOOD COUNT (AUTO) 6.5 K/uL (4.8-10.8)
[2020-12-17 14:03] LABS: APPEARANCE,URINE Cloudy (CLEAR); BILIRUBIN,URINE Negative (NEGATIVE); COLOR,URINE Yellow (YELLOW); GLUCOSE, URINE (UA) Negative (NEGATIVE); KETONES,URINE Negative (NEGATIVE); LEUKOCYTE ESTERASE ,URINE Small (NEGATIVE); NITRATE,URINE Negative (NEGATIVE); OCCULT BLOOD,URINE Trace (NEGATIVE); PROTEIN,URINE Negative (NEGATIVE); UROBILINOGEN,URINE 0.2 mg/dL (0.2-1.0)
[2020-12-17 14:22] LABS: ALBUMIN 3.6 g/dL (3.5-5.0); BILIRUBIN,TOTAL 0.5 mg/dL (0.2-1.0); CREATININE 0.7 mg/dL (0.5-1.5); POTASSIUM 4.4 mmol/L (3.5-5.1); THYROID STIMULATING HORMONE 1.23 uIU/mL (0.36-3.74); TOTAL PROTEIN, SERUM 6.9 g/dL (6.0-8.3)
[2020-12-17 14:25] LABS: BACTERIA,URINE Few /HPF (None Seen); RBC,URINE 0-1 /HPF (0-1); SQUAMOUS EPITHELIAL CELL,UR 30-50 /HPF (0-2)
[2020-12-17 15:12] LABS: ERYTHROCYTE SEDIMENTATION RATE 37 MM/HR (0-30)
== END | disposition home or self-care (01) ==
LOC: LAB 13:21
PROVIDERS: ATTEND Nurse Practitioner Family
DX: N20.0 Calculus of kidney (principal); E55.9 Vitamin D deficiency, unspecified; E78.00 Pure hypercholesterolemia, unspecified
CPT/HCPCS: 36415; 80053; 80061; 81001; 82306; 84439; 84443; 85025; 85651

== ENCOUNTER → 2021-03-18 | Outpatient (CLI) | payer OTHER ==
[2021-03-18 09:36] LABS: BASOPHILS % (AUTO) 1.1 % (0.0-5.0); EOSINOPHILS % (AUTO) 2.5 % (0.0-8.0); LYMPHOCYTES % (AUTO) 26.2 % (21.0-51.0); MEAN CORPUSCULAR HEMOGLOBIN 28.3 pg (27.0-33.0); MEAN CORPUSCULAR HGB CONC 31.4 g/dL (32.0-36.0); MEAN CORPUSCULAR VOLUME 90.1 fL (79-99); MONOCYTES % (AUTO) 9.3 % (3.0-13.0); NEUTROPHILS % (AUTO) 60.3 % (40.0-77.0); PLATELET COUNT (AUTO) 261 K/uL (130-400); RED BLOOD CELL COUNT(AUTO) 4.77 MIL/uL (4.00-5.50); WHITE BLOOD COUNT (AUTO) 6.5 K/uL (4.8-10.8)
[2021-03-18 09:37] LABS: APPEARANCE,URINE CLOUDY (CLEAR); BILIRUBIN,URINE NEGATIVE (NEGATIVE); GLUCOSE, URINE (UA) NEGATIVE (NEGATIVE); KETONES,URINE NEGATIVE (NEGATIVE); LEUKOCYTE ESTERASE ,URINE SMALL (NEGATIVE); NITRATE,URINE POSITIVE (NEGATIVE); OCCULT BLOOD,URINE SMALL (NEGATIVE); PH,URINE 5.5 (5.0-8.0); PROTEIN,URINE NEGATIVE (NEGATIVE); UROBILINOGEN,URINE 0.2 mg/dL (0.2-1.0)
[2021-03-18 09:44] LABS: COLOR,URINE DARK YELLOW (YELLOW)
[2021-03-18 09:47] LABS: BACTERIA,URINE Many /HPF (None Seen); MUCUS,URINE Moderate LPF (None Seen); RBC,URINE 0-1 /HPF (0-1); SQUAMOUS EPITHELIAL CELL,UR Moderate /HPF (0-2); WBC,URINE 26-50 /HPF (0-1)
[2021-03-18 09:49] LABS: CALCIUM OXALATE CRYSTALS,UR Few /LPF (None Seen)
[2021-03-18 10:17] LABS: ALBUMIN 3.8 g/dL (3.5-5.0); BILIRUBIN,TOTAL 0.6 mg/dL (0.2-1.0); CREATININE 0.8 mg/dL (0.5-1.5); POTASSIUM 4.3 mmol/L (3.5-5.1); THYROID STIMULATING HORMONE 1.91 uIU/mL (0.36-3.74); TOTAL PROTEIN, SERUM 7.1 g/dL (6.0-8.3)
[2021-03-18 10:39] LABS: ERYTHROCYTE SEDIMENTATION RATE 22 MM/HR (0-30)
== END | disposition home or self-care (01) ==
LOC: LAB 08:28
PROVIDERS: ATTEND Nurse Practitioner Family
DX: Z12.31 Encounter for screening mammogram for malignant neoplasm of breast (principal); Z13.1 Encounter for screening for diabetes mellitus; E78.00 Pure hypercholesterolemia, unspecified; N20.0 Calculus of kidney
CPT/HCPCS: 36415; 80053; 80061; 81001; 82306; 84439; 84443; 85025; 85651; 87077; 87088; 87186

== ENCOUNTER → 2021-04-05 | Outpatient (CLI) | payer OTHER | END | disposition home or self-care (01) | LOC: LAB 10:33 | PROVIDERS: ATTEND Internal Medicine Cardiovascular Disease | DX: Z20.822 Contact with and (suspected) exposure to COVID-19 (principal) | CPT/HCPCS: C9803; U0003 ==

== ENCOUNTER 2021-06-15 12:44 | Emergency (ER) | payer OTHER ==
[~2021-06-15] VITALS: Ht 160 cm; Wt 115.7 kg
[2021-06-15 13:57] LABS: BASOPHILS % (AUTO) 0.8 % (0.0-5.0); EOSINOPHILS % (AUTO) 1.8 % (0.0-8.0); HEMATOCRIT 40.3 % (36-48); MEAN CORPUSCULAR HEMOGLOBIN 29.2 pg (27.0-33.0); MEAN CORPUSCULAR VOLUME 91.2 fL (79-99); MONOCYTES % (AUTO) 8.9 % (3.0-13.0); PLATELET COUNT (AUTO) 239 K/uL (130-400); RED BLOOD CELL COUNT(AUTO) 4.42 MIL/uL (4.00-5.50); RED CELL DISTRIBUTION WIDTH 13.7 % (11.0-15.5)
[2021-06-15 14:05] LABS: CREATININE 0.8 mg/dL (0.5-1.5); POTASSIUM 3.9 mmol/L (3.5-5.1)
[2021-06-15 14:11] LABS: ALBUMIN 3.7 g/dL (3.5-5.0); BILIRUBIN,TOTAL 0.4 mg/dL (0.2-1.0); TOTAL PROTEIN, SERUM 6.8 g/dL (6.0-8.3)
[2021-06-15 15:35] VITALS: BP 122/60
== END 2021-06-15 14:23 | disposition home or self-care (01) ==
LOC: EDH 12:44
DX: R20.0 Anesthesia of skin (principal); E78.5 Hyperlipidemia, unspecified; Z88.0 Allergy status to penicillin; Z88.1 Allergy status to other antibiotic agents; Z88.6 Allergy status to analgesic agent; Z79.899 Other long term (current) drug therapy; Z98.890 Other specified postprocedural states
CPT/HCPCS: 36415; 70450; 80053; 83735; 84484; 85025; 93005

== ENCOUNTER → 2021-07-28 | Outpatient (CLI) | payer OTHER ==
[2021-07-28 09:10] LABS: EOSINOPHILS % (AUTO) 2.8 % (0.0-8.0); HEMATOCRIT 40.9 % (36-48); LYMPHOCYTES % (AUTO) 23.1 % (21.0-51.0); MEAN CORPUSCULAR HEMOGLOBIN 28.8 pg (27.0-33.0); MEAN CORPUSCULAR HGB CONC 31.8 g/dL (32.0-36.0); MEAN CORPUSCULAR VOLUME 90.5 fL (79-99); MONOCYTES % (AUTO) 9.4 % (3.0-13.0); NEUTROPHILS % (AUTO) 63.3 % (40.0-77.0); PLATELET COUNT (AUTO) 251 K/uL (130-400); RED BLOOD CELL COUNT(AUTO) 4.52 MIL/uL (4.00-5.50); RED CELL DISTRIBUTION WIDTH 13.5 % (11.0-15.5); WHITE BLOOD COUNT (AUTO) 7.2 K/uL (4.8-10.8)
[2021-07-28 09:11] LABS: BILIRUBIN,URINE Negative (NEGATIVE); COLOR,URINE Yellow (YELLOW); GLUCOSE, URINE (UA) Negative (NEGATIVE); KETONES,URINE Negative (NEGATIVE); LEUKOCYTE ESTERASE ,URINE Moderate (NEGATIVE); NITRATE,URINE Positive (NEGATIVE); OCCULT BLOOD,URINE Nonhemolyzed Trace (NEGATIVE); PH,URINE 5.5 (5.0-8.0); PROTEIN,URINE Negative (NEGATIVE)
[2021-07-28 09:16] LABS: APPEARANCE,URINE SLIGHTLY CLOUDY (CLEAR)
[2021-07-28 09:33] LABS: ALBUMIN 3.7 g/dL (3.5-5.0); BILIRUBIN,TOTAL 0.5 mg/dL (0.2-1.0); CREATININE 0.7 mg/dL (0.5-1.5); POTASSIUM 4.5 mmol/L (3.5-5.1); THYROID STIMULATING HORMONE 1.86 uIU/mL (0.36-3.74); TOTAL PROTEIN, SERUM 6.9 g/dL (6.0-8.3)
[2021-07-28 09:38] LABS: BACTERIA,URINE Rare /HPF (None Seen); RBC,URINE 0-1 /HPF (0-1); SQUAMOUS EPITHELIAL CELL,UR Rare /HPF (0-2); WBC,URINE 0-1 /HPF (0-1)
[2021-07-28 10:12] LABS: ERYTHROCYTE SEDIMENTATION RATE 26 MM/HR (0-30)
== END | disposition home or self-care (01) ==
LOC: LAB 08:14
PROVIDERS: ATTEND Nurse Practitioner Family
DX: Z13.21 Encounter for screening for nutritional disorder (principal); Z13.29 Encounter for screening for other suspected endocrine disorder; Z13.1 Encounter for screening for diabetes mellitus; E78.00 Pure hypercholesterolemia, unspecified
CPT/HCPCS: 36415; 80053; 80061; 81001; 82306; 84439; 84443; 85025; 85651; 87077; 87088; 87186

== ENCOUNTER → 2021-09-15 | Outpatient (CLI) | payer OTHER ==
[2021-09-15 09:17] LABS: BASOPHILS % (AUTO) 0.7 % (0.0-5.0); EOSINOPHILS % (AUTO) 1.9 % (0.0-8.0); LYMPHOCYTES % (AUTO) 21.6 % (21.0-51.0); MEAN CORPUSCULAR HEMOGLOBIN 28.4 pg (27.0-33.0); MEAN CORPUSCULAR HGB CONC 31.7 g/dL (32.0-36.0); MEAN CORPUSCULAR VOLUME 89.7 fL (79-99); MONOCYTES % (AUTO) 8.5 % (3.0-13.0); PLATELET COUNT (AUTO) 242 K/uL (130-400); RED BLOOD CELL COUNT(AUTO) 4.57 MIL/uL (4.00-5.50); RED CELL DISTRIBUTION WIDTH 13.3 % (11.0-15.5); WHITE BLOOD COUNT (AUTO) 6.7 K/uL (4.8-10.8)
[2021-09-15 09:30] LABS: ALBUMIN 3.8 g/dL (3.5-5.0); BILIRUBIN,TOTAL 0.3 mg/dL (0.2-1.0); CREATININE 0.6 mg/dL (0.5-1.5); POTASSIUM 4.4 mmol/L (3.5-5.1); TOTAL PROTEIN, SERUM 6.9 g/dL (6.0-8.3)
[2021-09-15 09:32] LABS: INR 0.97 (0.85-1.15); PROTHROMBIN TIME 10.6 SEC (9.6-11.6)
[2021-09-15 09:33] LABS: PARTIAL THROMBOPLASTIN TIME 28.6 SEC (26.3-35.5)
== END | disposition home or self-care (01) ==
LOC: RAH 07:42
PROVIDERS: ATTEND Internal Medicine Cardiovascular Disease
DX: C7A.00 Malignant carcinoid tumor of unspecified site (principal); I70.0 Atherosclerosis of aorta; I70.8 Atherosclerosis of other arteries; N20.1 Calculus of ureter; R16.2 Hepatomegaly with splenomegaly, not elsewhere classified; R06.00 Dyspnea, unspecified; R00.2 Palpitations
CPT/HCPCS: 36415; 76775; 80053; 85025; 85610; 85730; 93880

== ENCOUNTER → 2021-09-21 | Outpatient (CLI) | payer OTHER | END | disposition home or self-care (01) | LOC: RAH 10:00 | PROVIDERS: ATTEND Internal Medicine Cardiovascular Disease | DX: I51.7 Cardiomegaly (principal); E78.5 Hyperlipidemia, unspecified; E66.9 Obesity, unspecified | CPT/HCPCS: 36415; 80053; 85025; 85610; 85730; 93306; 93356 ==

== ENCOUNTER → 2021-10-14 | Outpatient (CLI) | payer OTHER ==
[2021-10-14 09:37] LABS: APPEARANCE,URINE Clear (CLEAR); BILIRUBIN,URINE Negative (NEGATIVE); COLOR,URINE Yellow (YELLOW); GLUCOSE, URINE (UA) Negative (NEGATIVE); KETONES,URINE Negative (NEGATIVE); LEUKOCYTE ESTERASE ,URINE Moderate (NEGATIVE); NITRATE,URINE Negative (NEGATIVE); OCCULT BLOOD,URINE Trace (NEGATIVE); PH,URINE 5.5 (5.0-8.0); PROTEIN,URINE Negative (NEGATIVE); UROBILINOGEN,URINE 0.2 mg/dL (0.2-1.0)
[2021-10-14 09:55] LABS: BACTERIA,URINE Moderate /HPF (None Seen); MUCUS,URINE Rare LPF (None Seen); RBC,URINE 0-1 /HPF (0-1); SQUAMOUS EPITHELIAL CELL,UR Few /HPF (0-2)
== END | disposition home or self-care (01) ==
LOC: RAH 08:44
PROVIDERS: ATTEND Internal Medicine Cardiovascular Disease
DX: N20.1 Calculus of ureter (principal); N39.0 Urinary tract infection, site not specified; R06.09 Other forms of dyspnea; R07.0 Pain in throat; R94.39 Abnormal result of other cardiovascular function study
CPT/HCPCS: 36415; 81001; 82310; 83970; 87077; 87088; 87186; 93015

== ENCOUNTER → 2021-12-27 | Outpatient (CLI) | payer OTHER ==
[2021-12-27 09:43] LABS: BASOPHILS % (AUTO) 0.9 % (0.0-5.0); HEMATOCRIT 40.7 % (36-48); MEAN CORPUSCULAR HEMOGLOBIN 29.3 pg (27.0-33.0); MEAN CORPUSCULAR HGB CONC 32.4 g/dL (32.0-36.0); MEAN CORPUSCULAR VOLUME 90.4 fL (79-99); MONOCYTES % (AUTO) 9.9 % (3.0-13.0); NEUTROPHILS % (AUTO) 62.9 % (40.0-77.0); PLATELET COUNT (AUTO) 243 K/uL (130-400); RED CELL DISTRIBUTION WIDTH 13.5 % (11.0-15.5); WHITE BLOOD COUNT (AUTO) 6.6 K/uL (4.8-10.8)
[2021-12-27 10:29] LABS: ALBUMIN 3.6 g/dL (3.5-5.0); BILIRUBIN,TOTAL 0.5 mg/dL (0.2-1.0); CREATININE 0.6 mg/dL (0.5-1.5); POTASSIUM 4.3 mmol/L (3.5-5.1); TOTAL PROTEIN, SERUM 6.8 g/dL (6.0-8.3)
== END ==
LOC: LAB 08:28
PROVIDERS: ATTEND Internal Medicine Medical Oncology
DX: C7A.00 Malignant carcinoid tumor of unspecified site (principal); C34.90 Malignant neoplasm of unspecified part of unspecified bronchus or lung
CPT/HCPCS: 36415; 80053; 85025

== ENCOUNTER → 2022-01-05 | Outpatient (CLI) | payer OTHER ==
[~2022-01-05] MED LIST changes: +IOHEXOL-350 50ML VIAL IV ONE; +IOHEXOL-350 75 ML VIAL IV ONE
== END | disposition home or self-care (01) ==
LOC: RAH 11:30
PROVIDERS: ATTEND Internal Medicine Medical Oncology
DX: C78.00 Secondary malignant neoplasm of unspecified lung (principal); C34.90 Malignant neoplasm of unspecified part of unspecified bronchus or lung
CPT/HCPCS: 71260; Q9967

== ENCOUNTER → 2022-01-18 | Outpatient (CLI) | payer OTHER ==
[~2022-01-18] MED LIST changes: -IOHEXOL-350 50ML VIAL IV ONE; -IOHEXOL-350 75 ML VIAL IV ONE
[2022-01-18 15:04] LABS: APPEARANCE,URINE Clear (CLEAR); BILIRUBIN,URINE Negative (NEGATIVE); COLOR,URINE Yellow (YELLOW); GLUCOSE, URINE (UA) Negative (NEGATIVE); KETONES,URINE Negative (NEGATIVE); LEUKOCYTE ESTERASE ,URINE Moderate (NEGATIVE); NITRATE,URINE Negative (NEGATIVE); OCCULT BLOOD,URINE Negative (NEGATIVE); PH,URINE 6.5 (5.0-8.0); PROTEIN,URINE Negative (NEGATIVE); UROBILINOGEN,URINE 0.2 mg/dL (0.2-1.0)
[2022-01-18 15:41] LABS: BACTERIA,URINE Few /HPF (None Seen); RBC,URINE None Seen /HPF (0-1)
== END | disposition home or self-care (01) ==
LOC: LAB 14:04
PROVIDERS: ATTEND Internal Medicine Infectious Disease
DX: N39.0 Urinary tract infection, site not specified (principal)
CPT/HCPCS: 81001; 87088

== ENCOUNTER → 2022-05-19 | Outpatient (CLI) | payer OTHER ==
[2022-05-19 11:17] LABS: APPEARANCE,URINE CLOUDY (CLEAR); BILIRUBIN,URINE NEGATIVE (NEGATIVE); COLOR,URINE YELLOW (YELLOW); GLUCOSE, URINE (UA) NEGATIVE (NEGATIVE); KETONES,URINE NEGATIVE (NEGATIVE); LEUKOCYTE ESTERASE ,URINE 500 Leu/uL (NEGATIVE); NITRATE,URINE 2+ (NEGATIVE); PH,URINE 5.5 (5.0-8.0); PROTEIN,URINE NEGATIVE (NEGATIVE); UROBILINOGEN,URINE 0.2 mg/dL (0.2-1.0)
[2022-05-19 11:45] LABS: BASOPHILS % (AUTO) 0.9 % (0.0-5.0); EOSINOPHILS % (AUTO) 1.2 % (0.0-8.0); HEMATOCRIT 42.2 % (36-48); LYMPHOCYTES % (AUTO) 22.7 % (21.0-51.0); MEAN CORPUSCULAR HEMOGLOBIN 29.1 pg (27.0-33.0); MEAN CORPUSCULAR HGB CONC 32.2 g/dL (32.0-36.0); MEAN CORPUSCULAR VOLUME 90.2 fL (79-99); MONOCYTES % (AUTO) 8.2 % (3.0-13.0); NEUTROPHILS % (AUTO) 66.5 % (40.0-77.0); PLATELET COUNT (AUTO) 220 K/uL (130-400); RED BLOOD CELL COUNT(AUTO) 4.68 MIL/uL (4.00-5.50); RED CELL DISTRIBUTION WIDTH 13.6 % (11.0-15.5); WHITE BLOOD COUNT (AUTO) 8.2 K/uL (4.8-10.8)
[2022-05-19 11:53] LABS: HEMOGLOBIN A1C 6.1 % (4.0-6.0)
[2022-05-19 12:03] LABS: CREATININE 0.7 mg/dL (0.5-1.5); POTASSIUM 3.6 mmol/L (3.5-5.1); THYROID STIMULATING HORMONE 0.95 uIU/mL (0.36-3.74); TOTAL PROTEIN, SERUM 7.3 g/dL (6.0-8.3)
[2022-05-19 12:11] LABS: BACTERIA,URINE Moderate /HPF (None Seen); RBC,URINE 0-1 /HPF (0-1)
== END | disposition home or self-care (01) ==
LOC: LAB 10:33
PROVIDERS: ATTEND Nurse Practitioner Family
DX: E55.9 Vitamin D deficiency, unspecified (principal); R53.83 Other fatigue; R63.5 Abnormal weight gain; R79.89 Other specified abnormal findings of blood chemistry
CPT/HCPCS: 36415; 80053; 80061; 81001; 82306; 82670; 83001; 83036; 84144; 84403; 84443; 85025; 87077; 87088; 87186

== ENCOUNTER → 2022-06-08 | Outpatient (CLI) | payer OTHER | END | disposition home or self-care (01) | LOC: RAH 08:23 | PROVIDERS: ATTEND Nurse Practitioner Family | DX: R10.11 Right upper quadrant pain (principal) | CPT/HCPCS: 76700 ==

== ENCOUNTER 2022-09-07 20:22 | Emergency (ER) | payer OTHER ==
[~2022-09-07] VITALS: Ht 157.5 cm; Wt 117.9 kg
[2022-09-07 21:06] LABS: BASOPHILS % (AUTO) 0.7 % (0.0-5.0); EOSINOPHILS % (AUTO) 5.5 % (0.0-8.0); HEMATOCRIT 39.7 % (36-48); LYMPHOCYTES % (AUTO) 22.4 % (21.0-51.0); MEAN CORPUSCULAR HEMOGLOBIN 29.3 pg (27.0-33.0); MEAN CORPUSCULAR HGB CONC 32.2 g/dL (32.0-36.0); MEAN CORPUSCULAR VOLUME 90.8 fL (79-99); MONOCYTES % (AUTO) 8.7 % (3.0-13.0); NEUTROPHILS % (AUTO) 62.1 % (40.0-77.0); PLATELET COUNT (AUTO) 226 K/uL (130-400); RED BLOOD CELL COUNT(AUTO) 4.37 MIL/uL (4.00-5.50); RED CELL DISTRIBUTION WIDTH 13.6 % (11.0-15.5); WHITE BLOOD COUNT (AUTO) 8.9 K/uL (4.8-10.8)
[2022-09-07 21:07] LABS: APPEARANCE,URINE CLEAR (CLEAR); BILIRUBIN,URINE NEGATIVE (NEGATIVE); COLOR,URINE LIGHT-YELLOW (YELLOW); GLUCOSE, URINE (UA) NEGATIVE (NEGATIVE); KETONES,URINE NEGATIVE (NEGATIVE); LEUKOCYTE ESTERASE ,URINE 250 Leu/uL (NEGATIVE); NITRATE,URINE NEGATIVE (NEGATIVE); PROTEIN,URINE NEGATIVE (NEGATIVE); UROBILINOGEN,URINE 0.2 mg/dL (0.2-1.0)
[2022-09-07 21:16] LABS: BACTERIA,URINE RARE /HPF (None Seen); SQUAMOUS EPITHELIAL CELL,UR FEW /HPF (0-2); WBC,URINE 26-50 /HPF (0-1)
[2022-09-07 21:19] LABS: CREATININE 0.7 mg/dL (0.5-1.5); POTASSIUM 3.7 mmol/L (3.5-5.1)
[2022-09-07 21:26] LABS: ALBUMIN 3.5 g/dL (3.5-5.0); TOTAL PROTEIN, SERUM 6.8 g/dL (6.0-8.3)
[2022-09-08 00:19] VITALS: BP 156/81
[2022-09-08] MEDS ORDERED: LEVO750T68 PO (00:56)
[2022-09-08] MEDS ORDERED: LEVOFLOXACIN 750 MG TABLET PO SCH ×2 (01:00)
[2022-09-08] MEDS ORDERED: LEVOFLOXACIN 500 MG TABLET ONE (01:03)
== END 2022-09-08 01:14 | disposition home or self-care (01) ==
LOC: EDH 20:22
DX: R07.89 Other chest pain (principal); E78.5 Hyperlipidemia, unspecified; Z79.899 Other long term (current) drug therapy; Z88.0 Allergy status to penicillin; Z88.5 Allergy status to narcotic agent; Z88.8 Allergy status to other drugs, medicaments and biological substances
CPT/HCPCS: 36415; 71045; 80053; 81001; 84484; 85025; 87088; 93005

== ENCOUNTER → 2022-10-05 | Outpatient (CLI) | payer OTHER ==
[~2022-10-05] MED LIST changes: +LEVO750T68 PO
[2022-10-05 09:35] LABS: BASOPHILS % (AUTO) 0.9 % (0.0-5.0); EOSINOPHILS % (AUTO) 1.8 % (0.0-8.0); HEMATOCRIT 43.6 % (36-48); LYMPHOCYTES % (AUTO) 20.7 % (21.0-51.0); MEAN CORPUSCULAR HEMOGLOBIN 29.1 pg (27.0-33.0); MEAN CORPUSCULAR HGB CONC 31.9 g/dL (32.0-36.0); MEAN CORPUSCULAR VOLUME 91.2 fL (79-99); MONOCYTES % (AUTO) 7.7 % (3.0-13.0); NEUTROPHILS % (AUTO) 68.3 % (40.0-77.0); PLATELET COUNT (AUTO) 261 K/uL (130-400); RED BLOOD CELL COUNT(AUTO) 4.78 MIL/uL (4.00-5.50); RED CELL DISTRIBUTION WIDTH 13.8 % (11.0-15.5); WHITE BLOOD COUNT (AUTO) 8.8 K/uL (4.8-10.8)
[2022-10-05 09:49] LABS: ALBUMIN 3.8 g/dL (3.5-5.0); CREATININE 0.7 mg/dL (0.5-1.5); POTASSIUM 3.9 mmol/L (3.5-5.1); TOTAL PROTEIN, SERUM 7.3 g/dL (6.0-8.3)
[2022-10-05 09:55] LABS: APPEARANCE,URINE CLEAR (CLEAR); BILIRUBIN,URINE NEGATIVE (NEGATIVE); COLOR,URINE LIGHT-YELLOW (YELLOW); GLUCOSE, URINE (UA) NEGATIVE (NEGATIVE); KETONES,URINE NEGATIVE (NEGATIVE); LEUKOCYTE ESTERASE ,URINE NEGATIVE Leu/uL (NEGATIVE); NITRATE,URINE NEGATIVE (NEGATIVE); PROTEIN,URINE NEGATIVE (NEGATIVE); UROBILINOGEN,URINE 0.2 mg/dL (0.2-1.0)
[2022-10-05 10:40] LABS: BACTERIA,URINE RARE /HPF (None Seen); MUCUS,URINE RARE LPF (None Seen); SQUAMOUS EPITHELIAL CELL,UR FEW /HPF (0-2)
== END | disposition home or self-care (01) ==
LOC: LAB 08:39
PROVIDERS: ATTEND Internal Medicine Medical Oncology
DX: N95.1 Menopausal and female climacteric states (principal); N39.0 Urinary tract infection, site not specified; C34.90 Malignant neoplasm of unspecified part of unspecified bronchus or lung; R79.89 Other specified abnormal findings of blood chemistry
CPT/HCPCS: 36415; 80053; 81001; 82670; 83001; 84144; 84403; 85025; 87077; 87088; 87186

== ENCOUNTER → 2022-10-06 | Outpatient (CLI) | payer OTHER ==
[~2022-10-06] MED LIST changes: +IOHEXOL 350 MG/ML 100ML INFUS..BTL IV ONE
== END | disposition home or self-care (01) ==
LOC: RAH 14:30
PROVIDERS: ATTEND Internal Medicine Medical Oncology
DX: C34.90 Malignant neoplasm of unspecified part of unspecified bronchus or lung (principal); M47.815 Spondylosis without myelopathy or radiculopathy, thoracolumbar region
CPT/HCPCS: 71260; Q9967

== ENCOUNTER 2022-11-16 22:56 | Emergency (ER) | payer OTHER ==
[~2022-11-16] VITALS: Ht 157.5 cm; Wt 117.9 kg
[~2022-11-16 22:56] MED LIST changes: -IOHEXOL 350 MG/ML 100ML INFUS..BTL IV ONE
[2022-11-16 23:29] LABS: APPEARANCE,URINE CLEAR (CLEAR); BILIRUBIN,URINE NEGATIVE (NEGATIVE); COLOR,URINE LIGHT-YELLOW (YELLOW); GLUCOSE, URINE (UA) NEGATIVE (NEGATIVE); KETONES,URINE NEGATIVE (NEGATIVE); LEUKOCYTE ESTERASE ,URINE 25 Leu/uL (NEGATIVE); NITRATE,URINE NEGATIVE (NEGATIVE); OCCULT BLOOD,URINE NEGATIVE (NEGATIVE); PH,URINE 7.5 (5.0-8.0); PROTEIN,URINE NEGATIVE (NEGATIVE); UROBILINOGEN,URINE 0.2 mg/dL (0.2-1.0)
[2022-11-16 23:34] LABS: MUCUS,URINE RARE LPF (None Seen); SQUAMOUS EPITHELIAL CELL,UR RARE /HPF (0-2)
[2022-11-17] MEDS ORDERED: CEFTRIAXONE 1G VIAL IVP ONE
[2022-11-17] MEDS ORDERED: LIDOCAINE HCL 1% 20 ML VIAL ONE (00:34)
[2022-11-17] MEDS ORDERED: CEFTRIAXONE 1G VIAL IM ONE (01:00)
[2022-11-17] MEDS ORDERED: CEFU500T67 PO (01:48)
[2022-11-17 01:49] VITALS: BP 144/72
== END 2022-11-17 01:56 | disposition home or self-care (01) ==
LOC: EDH 22:56
DX: N39.0 Urinary tract infection, site not specified (principal); E78.00 Pure hypercholesterolemia, unspecified; Z87.442 Personal history of urinary calculi; Z88.0 Allergy status to penicillin; Z88.8 Allergy status to other drugs, medicaments and biological substances; Z79.899 Other long term (current) drug therapy; Z87.440 Personal history of urinary (tract) infections; Z90.710 Acquired absence of both cervix and uterus
CPT/HCPCS: 99283; 87077; 87088; 87186; 81001; 96372; J0696

== ENCOUNTER 2023-01-19 05:58 | Day surgery (SDC) | payer OTHER ==
[~2023-01-19] VITALS: Ht 160 cm; Wt 120.2 kg
[2023-01-19] VITALS (11 sets, daily range): BP systolic 105–145; BP diastolic 56–83
[~2023-01-19 05:58] MED LIST changes: -CETI-89 PO; +ERGO500093 PO; -LEVO750T68 PO; +NAPR220C15 PO; -PANT40TA54 PO; -[UNRECOGNIZED DRUG - OTHER] PO
[2023-01-19] MEDS ORDERED: 0.9%NACL 1000ML 1,000 ML IV ONE (06:22)
[2023-01-19] MEDS ORDERED: PROPOFOL 10 MG/ML 20ML VIAL IV ONE ×2 (09:43→10:22)
[2023-01-19] MEDS ORDERED: LIDOCAINE PF 100MG/5ML (2%) SYRINGE 5ML ONE (09:43)
== END 2023-01-19 11:03 | disposition home or self-care (01) ==
LOC: DAH 05:58 → ENDO 05:58 → EDSTATUS 14:43
PROVIDERS: ATTEND Internal Medicine
DX: Z12.11 Encounter for screening for malignant neoplasm of colon (principal); Z20.822 Contact with and (suspected) exposure to COVID-19; K21.00 Gastro-esophageal reflux disease with esophagitis, without bleeding; K63.5 Polyp of colon; K57.30 Diverticulosis of large intestine without perforation or abscess without bleeding; K31.89 Other diseases of stomach and duodenum; K59.00 Constipation, unspecified; F41.9 Anxiety disorder, unspecified; F32.A Depression, unspecified; E78.5 Hyperlipidemia, unspecified; K76.0 Fatty (change of) liver, not elsewhere classified; Z80.0 Family history of malignant neoplasm of digestive organs; Z98.890 Other specified postprocedural states; Z79.899 Other long term (current) drug therapy; Z90.710 Acquired absence of both cervix and uterus; Z88.8 Allergy status to other drugs, medicaments and biological substances; Z88.0 Allergy status to penicillin; Z87.891 Personal history of nicotine dependence; Z87.442 Personal history of urinary calculi; Z72.89 Other problems related to lifestyle
CPT/HCPCS: 87426; 43239; 45380; 45385; J7030 ×2; J2001; J2704 ×2; A4620; A4215 ×2; A4223; A4657; A7002; A4222; A4221; A4663; A4216; A4606

== ENCOUNTER → 2023-05-17 | Outpatient (CLI) | payer OTHER ==
[2023-05-17 10:48] LABS: BASOPHILS # (AUTO) 0.07 K/uL (0.00-0.20); EOSINOPHILS # (AUTO) 0.14 K/uL (0.00-0.70); HEMATOCRIT 45.7 % (36-48); IMMATURE GRANULOCYTE ABSOLUTE 0.03 K/uL (0-1); LYMPHOCYTES # (AUTO) 1.7 K/uL (1.0-4.8); LYMPHOCYTES % (AUTO) 23.3 % (21.0-51.0); MEAN CORPUSCULAR HEMOGLOBIN 29.1 pg (27.0-33.0); MEAN CORPUSCULAR HGB CONC 31.5 g/dL (32.0-36.0); MEAN CORPUSCULAR VOLUME 92.5 fL (79-99); MONOCYTES # (AUTO) 0.6 K/uL (0.1-1.0); MONOCYTES % (AUTO) 8.9 % (3.0-13.0); NEUTROPHILS # (AUTO) 4.6 K/uL (1.8-7.7); NEUTROPHILS % (AUTO) 64.4 % (40.0-77.0); PLATELET COUNT (AUTO) 250 K/uL (130-400); RED BLOOD CELL COUNT(AUTO) 4.94 MIL/uL (4.00-5.50); RED CELL DISTRIBUTION WIDTH 13.4 % (11.0-15.5); WHITE BLOOD COUNT (AUTO) 7.1 K/uL (4.8-10.8)
[2023-05-17 10:50] LABS: APPEARANCE,URINE CLOUDY (CLEAR); BILIRUBIN,URINE NEGATIVE (NEGATIVE); COLOR,URINE YELLOW (YELLOW); GLUCOSE, URINE (UA) NEGATIVE (NEGATIVE); KETONES,URINE NEGATIVE (NEGATIVE); LEUKOCYTE ESTERASE ,URINE 250 Leu/uL (NEGATIVE); NITRATE,URINE NEGATIVE (NEGATIVE); OCCULT BLOOD,URINE NEGATIVE (NEGATIVE); PH,URINE 5.5 (5.0-8.0); PROTEIN,URINE NEGATIVE (NEGATIVE); UROBILINOGEN,URINE 0.2 mg/dL (0.2-1.0)
[2023-05-17 10:59] LABS: HEMOGLOBIN A1C 6.3 % (4.0-6.0)
[2023-05-17 11:01] LABS: ADD UA MICROSCOPIC YES
[2023-05-17 11:03] LABS: BACTERIA,URINE FEW /HPF (None Seen); MUCUS,URINE RARE LPF (None Seen); SQUAMOUS EPITHELIAL CELL,UR MANY /HPF (0-2)
[2023-05-17 11:15] LABS: ALBUMIN 3.8 g/dL (3.5-5.0); BILIRUBIN,TOTAL 0.6 mg/dL (0.2-1.0); CREATININE 0.6 mg/dL (0.5-1.5); POTASSIUM 4.4 mmol/L (3.5-5.1); THYROID STIMULATING HORMONE 1.15 uIU/mL (0.36-3.74); TOTAL PROTEIN, SERUM 7.3 g/dL (6.0-8.3)
[2023-05-17 12:07] LABS: ERYTHROCYTE SEDIMENTATION RATE 40 MM/HR (0-30)
== END | disposition home or self-care (01) ==
LOC: LAB 09:18
PROVIDERS: ATTEND Nurse Practitioner Family
DX: Z13.220 Encounter for screening for lipoid disorders (principal); Z13.29 Encounter for screening for other suspected endocrine disorder; Z13.21 Encounter for screening for nutritional disorder; R91.1 Solitary pulmonary nodule; E78.00 Pure hypercholesterolemia, unspecified; N20.0 Calculus of kidney; R73.09 Other abnormal glucose
CPT/HCPCS: 36415; 80053; 80061; 81001; 83036; 83525; 84439; 84443; 84481; 85025; 85651; 87077; 87088; 87186

== ENCOUNTER 2023-08-01 18:22 | Emergency (ER) | payer OTHER ==
[~2023-08-01] VITALS: Ht 160 cm; Wt 113.4 kg
[2023-08-01 19:04] LABS: APPEARANCE,URINE CLEAR (CLEAR); BILIRUBIN,URINE NEGATIVE (NEGATIVE); COLOR,URINE COLORLESS (YELLOW); GLUCOSE, URINE (UA) NEGATIVE (NEGATIVE); KETONES,URINE NEGATIVE (NEGATIVE); LEUKOCYTE ESTERASE ,URINE 75 Leu/uL (NEGATIVE); NITRATE,URINE NEGATIVE (NEGATIVE); OCCULT BLOOD,URINE NEGATIVE (NEGATIVE); PH,URINE 5.5 (5.0-8.0); PROTEIN,URINE NEGATIVE (NEGATIVE); UROBILINOGEN,URINE 0.2 mg/dL (0.2-1.0)
[2023-08-01 19:15] LABS: ADD UA MICROSCOPIC YES
[2023-08-01 19:19] LABS: CREATININE 0.8 mg/dL (0.5-1.5); POTASSIUM 4.3 mmol/L (3.5-5.1)
[2023-08-01 19:20] LABS: BASOPHILS # (AUTO) 0.08 K/uL (0.00-0.20); BASOPHILS % (AUTO) 0.9 % (0.0-5.0); EOSINOPHILS # (AUTO) 0.22 K/uL (0.00-0.70); EOSINOPHILS % (AUTO) 2.4 % (0.0-8.0); HEMATOCRIT 43.1 % (36-48); IMMATURE GRANULOCYTE ABSOLUTE 0.04 K/uL (0-1); LYMPHOCYTES # (AUTO) 2.4 K/uL (1.0-4.8); LYMPHOCYTES % (AUTO) 25.8 % (21.0-51.0); MEAN CORPUSCULAR HEMOGLOBIN 29.1 pg (27.0-33.0); MEAN CORPUSCULAR VOLUME 90.7 fL (79-99); MONOCYTES # (AUTO) 0.8 K/uL (0.1-1.0); MONOCYTES % (AUTO) 8.9 % (3.0-13.0); NEUTROPHILS # (AUTO) 5.7 K/uL (1.8-7.7); NEUTROPHILS % (AUTO) 61.6 % (40.0-77.0); PLATELET COUNT (AUTO) 254 K/uL (130-400); RED BLOOD CELL COUNT(AUTO) 4.75 MIL/uL (4.00-5.50); RED CELL DISTRIBUTION WIDTH 13.5 % (11.0-15.5); WHITE BLOOD COUNT (AUTO) 9.2 K/uL (4.8-10.8)
[2023-08-01 19:22] LABS: BACTERIA,URINE FEW /HPF (None Seen); SQUAMOUS EPITHELIAL CELL,UR FEW /HPF (0-2)
[2023-08-01 19:24] LABS: ALBUMIN 3.7 g/dL (3.5-5.0); BILIRUBIN,TOTAL 0.5 mg/dL (0.2-1.0); TOTAL PROTEIN, SERUM 7.1 g/dL (6.0-8.3)
[2023-08-01] MEDS ORDERED: SULF1TAB42 PO (21:43)
[2023-08-01] MEDS ORDERED: IBUP-2070 PO (21:43)
[2023-08-01 21:50] VITALS: BP 147/78; PULSE 84; RESP 16; O2SAT 96
== END 2023-08-01 21:55 | disposition home or self-care (01) ==
LOC: EDH 18:22
DX: N20.0 Calculus of kidney (principal); N21.0 Calculus in bladder; Z87.440 Personal history of urinary (tract) infections; E78.00 Pure hypercholesterolemia, unspecified; Z79.899 Other long term (current) drug therapy; Z98.890 Other specified postprocedural states; Z90.710 Acquired absence of both cervix and uterus; Z88.0 Allergy status to penicillin; Z88.5 Allergy status to narcotic agent; Z88.8 Allergy status to other drugs, medicaments and biological substances
CPT/HCPCS: 36415; 74176; 80053; 81001; 85025; 87088

== ENCOUNTER 2023-09-06 20:28 | Emergency (ER) | payer OTHER ==
[~2023-09-06] VITALS: Ht 160 cm; Wt 115.7 kg
[~2023-09-06 20:28] MED LIST changes: +IBUP-2070 PO; +SULF1TAB42 PO
[2023-09-06 21:03] LABS: BASOPHILS # (AUTO) 0.11 K/uL (0.00-0.20); EOSINOPHILS # (AUTO) 0.67 K/uL (0.00-0.70); HEMATOCRIT 43.7 % (36-48); IMMATURE GRANULOCYTE ABSOLUTE 0.11 K/uL (0-1); LYMPHOCYTES # (AUTO) 1.8 K/uL (1.0-4.8); LYMPHOCYTES % (AUTO) 15.7 % (21.0-51.0); MEAN CORPUSCULAR HEMOGLOBIN 29.8 pg (27.0-33.0); MEAN CORPUSCULAR HGB CONC 32.3 g/dL (32.0-36.0); MEAN CORPUSCULAR VOLUME 92.4 fL (79-99); MONOCYTES # (AUTO) 0.9 K/uL (0.1-1.0); MONOCYTES % (AUTO) 8.5 % (3.0-13.0); NEUTROPHILS # (AUTO) 7.5 K/uL (1.8-7.7); NEUTROPHILS % (AUTO) 67.8 % (40.0-77.0); PLATELET COUNT (AUTO) 238 K/uL (130-400); RED BLOOD CELL COUNT(AUTO) 4.73 MIL/uL (4.00-5.50); RED CELL DISTRIBUTION WIDTH 13.7 % (11.0-15.5); WHITE BLOOD COUNT (AUTO) 11.1 K/uL (4.8-10.8)
[2023-09-06 21:05] LABS: SARS-CoV-2, RNA, NAAT NEGATIVE SARS CoV-2 (NEGATIVE)
[2023-09-06 21:10] LABS: INFLUENZA TYPE A Negative For Type A (NEGATIVE); INFLUENZA TYPE B Negative For Type B (NEGATIVE)
[2023-09-06 21:18] LABS: CARBON DIOXIDE 30 mmol/L (21-32); CHLORIDE 99 mmol/L (101-111); CREATININE 0.9 mg/dL (0.5-1.5); GLOMERULAR FILTR. RATE CALC 71 mL/min (>90); GLUCOSE,RANDOM 136 mg/dL (70-105); POTASSIUM 3.7 mmol/L (3.5-5.1); SODIUM SERUM 139 mmol/L (136-145); UREA NITROGEN, BLOOD 16 mg/dL (7-18)
[2023-09-06 21:26] LABS: CREATINE KINASE, TOTAL 32 U/L (21-232)
[2023-09-06 23:54] VITALS: BP 137/73; PULSE 89; RESP 18; O2SAT 96
== END 2023-09-06 23:55 | disposition home or self-care (01) ==
LOC: EDH 20:28
DX: N18.9 Chronic kidney disease, unspecified (principal); N39.0 Urinary tract infection, site not specified; E78.00 Pure hypercholesterolemia, unspecified; Z20.822 Contact with and (suspected) exposure to COVID-19; Z79.899 Other long term (current) drug therapy; Z90.710 Acquired absence of both cervix and uterus; Z98.890 Other specified postprocedural states; Z88.0 Allergy status to penicillin; Z88.5 Allergy status to narcotic agent; Z88.8 Allergy status to other drugs, medicaments and biological substances
CPT/HCPCS: 36415; 71045; 80048; 82550; 84484; 85025; 87635; 87804; 93005

== ENCOUNTER → 2023-12-17 | Outpatient (CLI) | payer OTHER | END | disposition home or self-care (01) | LOC: RAH 14:00 | PROVIDERS: ATTEND Nurse Practitioner Family | DX: R92.333 Mammographic heterogeneous density, bilateral breasts (principal); N60.19 Diffuse cystic mastopathy of unspecified breast; R92.2 Inconclusive mammogram | CPT/HCPCS: 77066 ==

== ENCOUNTER → 2024-02-19 | Outpatient (CLI) | payer OTHER ==
[2024-02-19 08:29] LABS: BASOPHILS # (AUTO) 0.06 K/uL (0.00-0.20); BASOPHILS % (AUTO) 0.9 % (0.0-5.0); EOSINOPHILS # (AUTO) 0.17 K/uL (0.00-0.70); EOSINOPHILS % (AUTO) 2.5 % (0.0-8.0); HEMATOCRIT 41.8 % (36-48); IMMATURE GRANULOCYTE ABSOLUTE 0.04 K/uL (0-1); LYMPHOCYTES # (AUTO) 1.7 K/uL (1.0-4.8); LYMPHOCYTES % (AUTO) 24.1 % (21.0-51.0); MEAN CORPUSCULAR HGB CONC 32.1 g/dL (32.0-36.0); MEAN CORPUSCULAR VOLUME 93.7 fL (79-99); MONOCYTES # (AUTO) 0.6 K/uL (0.1-1.0); MONOCYTES % (AUTO) 9.2 % (3.0-13.0); NEUTROPHILS # (AUTO) 4.3 K/uL (1.8-7.7); NEUTROPHILS % (AUTO) 62.7 % (40.0-77.0); PLATELET COUNT (AUTO) 206 K/uL (130-400); RED BLOOD CELL COUNT(AUTO) 4.46 MIL/uL (4.00-5.50); RED CELL DISTRIBUTION WIDTH 13.8 % (11.0-15.5); WHITE BLOOD COUNT (AUTO) 6.8 K/uL (4.8-10.8)
[2024-02-19 08:47] LABS: ALBUMIN 3.2 g/dL (3.5-5.0); BILIRUBIN,TOTAL 0.5 mg/dL (0.2-1.0); CREATININE 0.6 mg/dL (0.5-1.0); POTASSIUM 4.3 mmol/L (3.5-5.1); TOTAL PROTEIN, SERUM 6.3 g/dL (6.0-8.3)
== END | disposition home or self-care (01) ==
LOC: LAB 07:50
PROVIDERS: ATTEND Internal Medicine Medical Oncology
DX: C34.90 Malignant neoplasm of unspecified part of unspecified bronchus or lung (principal); C7A.00 Malignant carcinoid tumor of unspecified site
CPT/HCPCS: 36415; 80053; 85025

== ENCOUNTER → 2024-04-08 | Outpatient (CLI) | payer OTHER ==
[2024-04-08 09:26] LABS: CREATININE 0.7 mg/dL (0.5-1.0)
== END | disposition home or self-care (01) ==
LOC: LAB 08:12
PROVIDERS: ATTEND Internal Medicine Medical Oncology
DX: C34.90 Malignant neoplasm of unspecified part of unspecified bronchus or lung (principal); C7A.00 Malignant carcinoid tumor of unspecified site
CPT/HCPCS: 36415; 82565; 84520

== ENCOUNTER → 2024-04-09 | Outpatient (CLI) | payer OTHER ==
[~2024-04-09] MED LIST changes: +IOHEXOL-350 50ML VIAL IV ONE
== END | disposition home or self-care (01) ==
LOC: RAH 10:00
PROVIDERS: ATTEND Internal Medicine Medical Oncology
DX: C34.90 Malignant neoplasm of unspecified part of unspecified bronchus or lung (principal); C7A.00 Malignant carcinoid tumor of unspecified site
CPT/HCPCS: 71260; Q9967

== ENCOUNTER → 2024-12-10 | Outpatient (CLI) | payer OTHER ==
[~2024-12-10] MED LIST changes: -IOHEXOL-350 50ML VIAL IV ONE; -NAPR220C15 PO; -SULF1TAB42 PO
[2024-12-10 10:54] LABS: APPEARANCE,URINE CLOUDY (CLEAR); BILIRUBIN,URINE NEGATIVE (NEGATIVE); COLOR,URINE YELLOW (YELLOW); GLUCOSE, URINE (UA) NEGATIVE (NEGATIVE); KETONES,URINE NEGATIVE (NEGATIVE); LEUKOCYTE ESTERASE ,URINE 500 Leu/uL (NEGATIVE); NITRATE,URINE 2+ (NEGATIVE); PH,URINE 5.5 (5.0-8.0); PROTEIN,URINE 10 mg/dL (NEGATIVE); UROBILINOGEN,URINE 0.2 mg/dL (0.2-1.0)
[2024-12-10 10:58] LABS: BASOPHILS # (AUTO) 0.06 K/uL (0.00-0.20); BASOPHILS % (AUTO) 0.9 % (0.0-5.0); EOSINOPHILS # (AUTO) 0.08 K/uL (0.00-0.70); EOSINOPHILS % (AUTO) 1.2 % (0.0-8.0); HEMATOCRIT 43.1 % (36-48); IMMATURE GRANULOCYTE ABSOLUTE 0.03 K/uL (0-1); LYMPHOCYTES # (AUTO) 1.5 K/uL (1.0-4.8); LYMPHOCYTES % (AUTO) 23.3 % (21.0-51.0); MEAN CORPUSCULAR HEMOGLOBIN 29.9 pg (27.0-33.0); MEAN CORPUSCULAR HGB CONC 32.3 g/dL (32.0-36.0); MEAN CORPUSCULAR VOLUME 92.7 fL (79-99); MONOCYTES # (AUTO) 0.6 K/uL (0.1-1.0); MONOCYTES % (AUTO) 9.5 % (3.0-13.0); NEUTROPHILS # (AUTO) 4.3 K/uL (1.8-7.7); NEUTROPHILS % (AUTO) 64.6 % (40.0-77.0); PLATELET COUNT (AUTO) 210 K/uL (130-400); RED BLOOD CELL COUNT(AUTO) 4.65 MIL/uL (4.00-5.50); RED CELL DISTRIBUTION WIDTH 13.3 % (11.0-15.5); WHITE BLOOD COUNT (AUTO) 6.6 K/uL (4.8-10.8)
[2024-12-10 11:01] LABS: ADD UA MICROSCOPIC YES
[2024-12-10 11:06] LABS: MUCUS,URINE RARE LPF (None Seen); NON-SQUAMOUS EPITHELIAL CELL 1 /HPF (0-2); WBC CLUMP MOD /HPF (0-1); WBC,URINE TNTC /HPF (0-1)
[2024-12-10 11:07] LABS: HEMOGLOBIN A1C 5.8 % (4.0-6.0)
[2024-12-10 11:16] LABS: BACTERIA,URINE MANY /HPF (None Seen)
[2024-12-10 11:18] LABS: SQUAMOUS EPITHELIAL CELL,UR Moderate /HPF (0-2)
[2024-12-10 11:21] LABS: ALBUMIN 3.8 g/dL (3.5-5.0); BILIRUBIN,TOTAL 0.7 mg/dL (0.2-1.0); CREATININE 0.7 mg/dL (0.5-1.0); POTASSIUM 4.7 mmol/L (3.5-5.1); THYROID STIMULATING HORMONE 1.17 uIU/mL (0.36-3.74); TOTAL PROTEIN, SERUM 7.2 g/dL (6.0-8.3)
== END | disposition home or self-care (01) ==
LOC: LAB 10:35
PROVIDERS: ATTEND Family Medicine
DX: N20.0 Calculus of kidney (principal); N18.9 Chronic kidney disease, unspecified; Z13.220 Encounter for screening for lipoid disorders; R53.83 Other fatigue; R73.01 Impaired fasting glucose; Z87.440 Personal history of urinary (tract) infections
CPT/HCPCS: 36415; 80053; 80061; 81001; 83036; 83525; 84443; 85025; 87077; 87086; 87186

== ENCOUNTER → 2025-01-05 | Outpatient (CLI) | payer OTHER ==
--- NOTE | 2025-01-06 09:27 | HMCIMG ---
Exam Type: MAMMO SCREENING BILATERAL Clinical Information: ANNUAL SCREENING Comparison: December 17, 2023 Technique: Mammogram with CAD was performed with CC and MLO projections. CAD shows no worrisome regions. FINDINGS: The breasts are heterogeneously dense, which may obscure small masses. No dominant mass or suspicious microcalcification identified. There is no nipple retraction or skin thickening. Benign-appearing calcifications are seen. CAD shows no worrisome regions. IMPRESSION: 1. No mammographic signs of malignancy. 2. Routine follow-up recommended. CATEGORY 2: BENIGN FINDINGS Note: A negative x-ray should not delay biopsy if a dominant or clinically suspicious mass is present, since 8-10% of cancers are not identified by mammography. Dense breasts may obscure an underlying neoplasm.
== END | disposition home or self-care (01) ==
LOC: RAH 14:35
PROVIDERS: ATTEND Family Medicine
DX: Z12.31 Encounter for screening mammogram for malignant neoplasm of breast (principal); R92.333 Mammographic heterogeneous density, bilateral breasts
CPT/HCPCS: 77067

== ENCOUNTER → 2025-05-15 | Outpatient (CLI) | payer OTHER ==
[~2025-05-15] MED LIST changes: +IBUP-1492 PO; -IBUP-2070 PO
[2025-05-15 14:02] LABS: ASPARTATE AMINOTRANSFERASE 37.0 U/L (10-37); CREATININE 0.6 mg/dL (0.5-1.0); GLOMERULAR FILTR. RATE CALC 99.0 mL/min (>90); GLUCOSE,RANDOM 94.0 mg/dL (70-105); LDL DIRECT 137.0 mg/dL (0-99); SODIUM SERUM 140.0 mmol/L (136-145); TOTAL PROTEIN, SERUM 6.8 g/dL (6.0-8.3); UREA NITROGEN, BLOOD 13.0 mg/dL (7-18)
[2025-05-15 14:12] LABS: IMMATURE GRANULOCYTE ABSOLUTE 0.04 K/uL (0-1); NUCLEATED RED BLOOD CELLS 0.0 % (0.0-0.19); PLATELET COUNT (AUTO) 243 K/uL (130-400); RED BLOOD CELL COUNT(AUTO) 4.63 MIL/uL (4.00-5.50); RED CELL DISTRIBUTION WIDTH 13.5 % (11.0-15.5); WHITE BLOOD COUNT (AUTO) 7.8 K/uL (4.8-10.8)
== END | disposition home or self-care (01) ==
LOC: LAB 11:16
PROVIDERS: ATTEND Family Medicine
DX: N39.0 Urinary tract infection, site not specified (principal); R73.01 Impaired fasting glucose; R53.83 Other fatigue; Z13.220 Encounter for screening for lipoid disorders
CPT/HCPCS: 36415; 80053; 80061; 83036; 85025; 87086

== ENCOUNTER → 2025-05-28 | Outpatient (CLI) | payer OTHER ==
[~2025-05-28] MED LIST changes: +CYCL5TAB3 PO
--- NOTE | 2025-05-28 11:59 | HMCIMG ---
US RENAL SONOGRAM Indication: Other chronic cystitis with hematuria Technique: Renal ultrasound was performed by a cesspool cleaner and reviewed by a radiologist. Findings: Right Kidney: Measures 10.7 x 5.5 x 4.4 cm. Unremarkable sonographic appearance without focal lesions or hydronephrosis. Left Kidney: Measures 11.5 x 4.7 x 4.8 cm. Unremarkable sonographic appearance without focal lesions or hydronephrosis. The left kidney has a parapelvic cyst measuring 2. 0.0 x 1.3 x 0.3 cm. Urinary bladder: Unremarkable. Urinary bladder wall thickness is 0.4 cm. The prevoid residual is 620.1 cc. And post void residual is 52.1 cc. Impression: Normal renal ultrasound.
== END | disposition home or self-care (01) ==
LOC: RAH 10:54
PROVIDERS: ATTEND Nurse Practitioner Family
DX: N28.1 Cyst of kidney, acquired (principal); N30.21 Other chronic cystitis with hematuria
CPT/HCPCS: 76770

== ENCOUNTER → 2025-05-29 | Emergency (ER) | payer OTHER ==
[~2025-05-29] VITALS: Ht 157.5 cm; Wt 113.9 kg
--- NOTE | 2025-05-29 21:59 | ERN ---
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 Patient reports that pain feels sharp. Reports that the last episode has lasted about 20 minutes. Patient reports occasional cough but reports that is chronic due to her lobectomy. Denies any nausea or vomiting, denies any abdominal pain, denies any recent travel. Patient reports she is taking Bactrim for the last two days for a UTI. Otherwise denies any fevers. Patient reports she has seen her Cardiology for an abnormal EKG and there scheduled to have a CT scan done on June 03. Allergies: Coded Allergies: Penicillins (Verified Allergy, Severe, 10/05/20) piperacillin (Unverified Allergy, Severe, SHORTNESS OF BREATH, 10/06/20) tazobactam (Unverified Allergy, Severe, SHORTNESS OF BREATH, 10/06/20) morphine (Verified Allergy, Unknown, 10/05/20) Home Meds Active Scripts Ibuprofen (Ibuprofen) 600 Mg Tablet, 600 MG PO Q6H PRN for PAIN, #20 TAB Prov:SHARRON GIBSON MD 08/01/23 Reported Medications Ergocalciferol (Vitamin D2) (Vitamin D2) 1,250 Mcg Capsule, 1250 MCG PO QWEEK, CAP 01/16/23 Past Medical History Past Medical History: High Cholesterol, UTI Additional Past Medical Hx: L LOBECTOMY, BRONCHITIS Surgical History: Hysterectomy, Other Surgical History Other: LOOBECTOMY Family History: CAD, DM, HTN Social History: Negative, Lives with family History: Not Applicable RN Note Reviewed/Agreed w/PFSH: Yes Review of System Dictation Constitutional: Negative for fever,chills, and weight loss Eyes: Negative for injury, pain,redness, and discharge ENT: Negative for injury,pain or swelling Cardiovascular: Negative for palpitations, and edema positive for chest pain Respiratory: Negative for shortness of breath, cough, and wheezing, Abdomen/GI: Negative for abdominal pain, nausea, vomiting, diarrhea, and constipation Back: Negative for injury and pain : Negative for injury, bleeding and discharge MS/Extremity: Negative for injury and deformity Skin: Negative for rash, and discoloration Neuro: Negative for headache, weakness, numbness, tingling, and seizure Psych: Negative for suicide ideation, homicidal ideation, and hallucinations Initial Vital Sign VS Vital Signs Date Time Temp Pulse Resp B/P (MAP) Pulse Ox O2 Delivery O2 Flow Rate FiO2 05/29/25 21:43 100.0 109 18 145/82 96 Room Air 0 05/29/25 22:21 21 Physical Exam Dictation Vital Signs reviewed General Appearance: Alert, oriented x 3, no acute distress, well developed, nourished. Head and Face: non-traumatic. Eyes: PERRL, pink conjunctivas, eyelid no trauma, anterior chamber with arcus senilis. Ears: Pinnas intact and no signs of trauma or erythema ear canals clear and no discharge TM no erythema Nose: No discharge, no bleeding. Oropharynx: Mouth normal, tongue pink. pharynx clear,no erythema, tonsils no exudates, no abscesses noted, mucous membrane moist Neck: Supple, non-tender, no thyromegaly, no masses, no JVD, no bruits Breast:Deferred Chest:No tenderness, no crepitus, no paradoxical movement, no retractions Lungs:Clear, well-ventilated, symmetric, no rales, no wheezing, no rhonchi, no stridor, good breath sounds bilaterally Heart: Regular rate, regular rhythm, no murmur, no gallops Vascular: no peripheral edema, Abdomen: Soft, positive bowel sounds, nondistended, no guarding, nontender, no rebound, no masses no hepatomegaly, no splenomegaly, no Delacruz's sign, no hernias. Rectal: Deferred Genital: Deferred Neurological: Normal speech, motor function intact, sensory function intact Musculoskeletal: Neck nontender, full range of motion, back nontender, full range of motion, Extremities: nontender, full range of motion Skin: Color pink, dry, no turgor, no rash, no lacerations, no abrasions, no contusions. Lymphatic: Deferred Results (Laboratory/Radiology) Laboratory/Radiology Laboratory Tests Test 05/29/25 22:12 05/29/25 22:15 05/29/25 22:43 05/29/25 23:17 White Blood Count 6.8 K/uL (4.8-10.8) Red Blood Count 4.35 MIL/uL (4.00-5.50) Hemoglobin 13.1 g/dL (12.0-16.0) Hematocrit 40.4 % (36-48) Mean Corpuscular Volume 92.9 fL (79-99) Mean Corpuscular Hemoglobin 30.1 pg (27.0-33.0) Mean Corpuscular Hemoglobin Concent 32.4 g/dL (32.0-36.0) Red Cell Distribution Width 13.2 % (11.0-15.5) Platelet Count 207 K/uL (130-400) Mean Platelet Volume 11.9 fL (7.5-10.5) H Immature Granulocyte % (Auto) 0.6 % (0-1) Neutrophils (%) (Auto) 63.6 % (40.0-77.0) Lymphocytes (%) (Auto) 23.6 % (21.0-51.0) Monocytes (%) (Auto) 9.8 % (3.0-13.0) Eosinophils (%) (Auto) 1.5 % (0.0-8.0) Basophils (%) (Auto) 0.9 % (0.0-5.0) Neutrophils # (Auto) 4.3 K/uL (1.8-7.7) Lymphocytes # (Auto) 1.6 K/uL (1.0-4.8) Monocytes # (Auto) 0.7 K/uL (0.1-1.0) Eosinophils # (Auto) 0.10 K/uL (0.00-0.70) Basophils # (Auto) 0.06 K/uL (0.00-0.20) Absolute Immature Granulocyte (auto 0.04 K/uL (0-1) Nucleated Red Blood Cells 0.0 % (0.0-0.19) Sodium Level 139 mmol/L (136-145) Potassium Level 4.0 mmol/L (3.5-5.1) Chloride Level 102 mmol/L (101-111) Carbon Dioxide Level 28 mmol/L (21-32) Blood Urea Nitrogen 10 mg/dL (7-18) Creatinine 0.8 mg/dL (0.5-1.0) Glomerular Filtration Rate Calc 81 mL/min (>90) Random Glucose 137 mg/dL (70-105) H Total Calcium 9.6 mg/dL (8.5-10.1) Magnesium Level 1.80 mg/dL (1.80-2.40) Total Creatine Kinase 57 U/L (21-232) Troponin I High Sensitivity < 4 ng/L (4-50) L < 4 ng/L (4-50) L B-Type Natriuretic Peptide 6 pg/mL (0-100) Lipase 35 U/L (16-77) Influenza Type A Antigen Negative For Type A Influenza Type B Antigen Negative For Type B SARS-CoV-2 Antigen (Rapid) PRESUMPTIVE NEGATIVE Urine Color LIGHT-YELLOW (YELLOW) Urine Appearance CLEAR (CLEAR) Urine pH 6.5 (5.0-8.0) Urine Specific [place] 1.014 (1.001-1.031) Urine Protein NEGATIVE mg/dL (NEGATIVE) Urine Glucose (UA) NEGATIVE mg/dL (NEGATIVE) Urine Ketones NEGATIVE mg/dL (NEGATIVE) Urine Occult Blood +- (TRACE) (NEGATIVE) H Urine Nitrate NEGATIVE (NEGATIVE) Urine Bilirubin NEGATIVE mg/dL (NEGATIVE) Urine Urobilinogen 0.2 mg/dL (0.2-1.0) Urine Leukocyte Esterase NEGATIVE Mathew/uL Urine RBC 0-1 /HPF (0-1) Urine WBC 2-5 /HPF (0-1) H Urine Squamous Epithelial Cells RARE /HPF (0-2) Urine Bacteria None /HPF (None Seen) REASON: cp ORDERING PHYSICIAN: FROILAN FALL PROCEDURE: CXR1VW - CHEST 1VW EXAM: CR Chest, 1 View. CLINICAL HISTORY: cp COMPARISON: None provided. FINDINGS: LUNGS: The lungs show no infiltrate or other acute finding. PLEURAL SPACES: No pleural effusion or pneumothorax. MEDIASTINUM: Cardiac size and mediastinal contours within normal limits. BONES: No aggressive appearing osseous lesion seen. IMPRESSION: No acute cardiopulmonary pathology is evident. /[place] Labs Reviewed?: Yes EKG: (+) rhythm (Sinus tachycardia) EKG Comment: Date:05/29/2025 Time:2143 Ventricular rate:104 ND interval:201 QRS duration:96 QT/QTc:351/461 EKG interpretation: Sinus tachycardic Reviewed by ED Attending no STEMI ED Course ED Course Orders Procedure Category Date Status Time Cbc With Differential LAB 05/29/25 Complete 21:54 Chest 1vw RAD 05/29/25 Resulted 21:54 12 Lead Ekg Tracing- EKG 05/29/25 Logged Technical 21:54 0.9%Nacl 1000ml (Ns PHA 05/29/25 Complete 1000ml) 22:00 Acetaminophen 500mg PHA 05/29/25 Complete Tab (Tylenol 500mg T 22:00 Magnesium LAB 05/29/25 Complete 21:54 Creatine Kinase, Total LAB 05/29/25 Complete 21:54 Troponin I High LAB 05/29/25 Complete Sensitivity 21:54 Aspirin 325mg Tab PHA 05/29/25 Complete (Aspirin 325mg Tab) 22:00 Urinalysis Profile LAB 05/29/25 Complete 21:54 Basic Metabolic Panel LAB 05/29/25 Complete 21:54 Lipase LAB 05/29/25 Complete 21:54 B-Type Natriuretic LAB 05/29/25 Complete Peptide 21:54 Covid19 (Sars Antigen LAB 05/29/25 Complete Rapid) 21:54 Influenza Type A & B, LAB 05/29/25 Complete Rapid 21:54 Troponin I High LAB 05/29/25 Complete Sensitivity 23:08 Current Medications Medications (Trade) Dose Ordered Sig/Ray Route PRN Reason Start Time Stop Time Status Last Admin Dose Admin Acetaminophen (TYLenol 500MG TAB) 1,000 mg ONCE ONCE PO 05/29/25 22:00 05/29/25 22:01 DC 05/29/25 22:17 Aspirin (Aspirin 325mg Tab) 325 mg ONCE ONCE PO 05/29/25 22:00 05/29/25 22:01 DC 05/29/25 22:17 Sodium Chloride 1,000 ml @ 0 mls/hr ONCE ONCE IV 05/29/25 22:00 05/29/25 22:01 DC 05/29/25 22:17 Vital Signs Date Time Temp Pulse Resp B/P (MAP) Pulse Ox O2 Delivery O2 Flow Rate FiO2 05/29/25 22:21 98.4 75 18 147/81 98 Room Air* 0 21 05/29/25 21:43 100.0 109 18 145/82 96 Room Air 0 HEART Score Response (Comments) Value History: Low suspicion (0) 0 EKG: Normal 0 Age: 45-65yrs (+1) 1 Risk Factors: 1-2 risk factors (+1) 1 Initial Troponin: Normal limit (0) 0 Total 2 Medical Decision Making MDM The Patient is a 64 year old female with a 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 Patient reports that pain feels sharp. Reports that the last episode has lasted about 20 minutes. Patient reports occasional cough but reports that is chronic due to her lobectomy. Denies any nausea or vomiting, denies any abdominal pain, denies any recent travel. Patient reports she is taking Bactrim for the last two days for a UTI. Otherwise denies any fevers. Patient reports she has seen her Cardiology for an abnormal EKG and there scheduled to have a CT scan done on June 03. CBC showed no leukocytosis, no anemia, chemistry showed no electrolyte imbalance, negative troponin x2, negative lipase, chest x-ray showed no acute pathology. Patient initially with a low-grade temperature, slightly t achycardic. Patient is being treated for a urinary tract infection. On physical exam patient is in no acute distress, nontoxic appearance, there is some tenderness to palpation to the chest. Patient with low risk for cardiac etiology. Patient with intermediate stabbing like chest pain. Reports it lasts a few minutes. Patient is falling up with director of land acquisition. Has an appointment for June 03. Patient instructed to continue with her appointments and to see her director of land acquisition as soon as possible. Patient instructed to return if anything worsens Differential diagnosis: Pneumonia, ACS, costochondritis, dehydration Need for hospitalization: Patient does not meet criteria for hospitalization. There are no social concerns with this patient. DX & DISP Disposition: Discharge Departure Impression: Primary Impression: Atypical chest pain Condition: Stable Scripts Cyclobenzaprine HCl (Cyclobenzaprine HCl) 5 Mg Tablet 1 TAB PO TIDP PRN for muscle spasms for 5 Days, #10 TAB 0 Refills Prov: FROILAN FALL EPIC CADENCE ANALYST 05/29/25 Additional Instructions: Your labs were unremarkable. Please continue to follow up with your director of land acquisition and your primary doctor. If anything worsens, you develop severe pain or if anything concerns you please return to ER. FOLLOW-UP WITH PRIMARY CARE PROVIDER IN 1 TO 2 DAYS. TAKE MEDICATIONS DIRECTED HERE IN THE EMERGENCY ROOM. OKAY TO CONTINUE HOME MEDICATIONS UNLESS OTHERWISE DISCUSSED DURING YOUR VISIT IN THE EMERGENCY ROOM TODAY. RETURN TO YOUR NEAREST EMERGENCY ROOM IF SYMPTOMS WORSEN OR IF THERE IS NO IMPROVEMENT. CALL 911 IF YOU NEED IMMEDIATE ASSISTANCE. TAKE TYLENOL [id number] NEEDED AND IF NO CONTRAINDICATIONS ARE PRESENT. INCREASE ORAL HYDRATION. A WOUND CULTURE OR URINE CULTURE WAS ORDERED HERE IN THE EMERGENCY ROOM DEPARTMENT PLEASE FOLLOW-UP WITH PRIMARY CARE PROVIDER AND ADVISE THEM TO GET REPEAT PORTS FROM OUR FACILITY. IF YOU HAD ANY RADHA WRAP/SPLINTS THAT WERE APPLIED HERE, PLEASE DO NOT REMOVE THEM UNTIL YOU SEE YOUR PRIMARY CARE OR SPECIALTY. Referrals: JESSICA RIZVI MD (PCP) Time of Disposition: 23:57 I have reviewed the case, and I agree with, Diagnosis and Plan FROILAN FALL May 29, 2025 21:59
[2025-05-29] MEDS: ASPIRIN 325MG TAB PO ONE (22:17)
[2025-05-29] MEDS: 0.9%NACL 1000ML 1,000 ML IV ONE (22:17)
[2025-05-29 22:19] LABS: IMMATURE GRANULOCYTE ABSOLUTE 0.04 K/uL (0-1); NUCLEATED RED BLOOD CELLS 0.0 % (0.0-0.19); PLATELET COUNT (AUTO) 207 K/uL (130-400); RED BLOOD CELL COUNT(AUTO) 4.35 MIL/uL (4.00-5.50); RED CELL DISTRIBUTION WIDTH 13.2 % (11.0-15.5); WHITE BLOOD COUNT (AUTO) 6.8 K/uL (4.8-10.8)
[2025-05-29 22:27] LABS: CREATININE 0.8 mg/dL (0.5-1.0); GLOMERULAR FILTR. RATE CALC 81.0 mL/min (>90); GLUCOSE,RANDOM 137.0 mg/dL (70-105); SODIUM SERUM 139.0 mmol/L (136-145); UREA NITROGEN, BLOOD 10.0 mg/dL (7-18)
[2025-05-29 22:36] LABS: CREATINE KINASE, TOTAL 57.0 U/L (21-232)
[2025-05-29 23:01] VITALS: TEMP 98.4
[2025-05-29 23:03] LABS: APPEARANCE,URINE CLEAR (CLEAR); GLUCOSE, URINE (UA) NEGATIVE (NEGATIVE); LEUKOCYTE ESTERASE ,URINE NEGATIVE Leu/uL (NEGATIVE); NITRATE,URINE NEGATIVE (NEGATIVE); OCCULT BLOOD,URINE +- (TRACE) (NEGATIVE)
[2025-05-29 23:08] LABS: ADD UA MICROSCOPIC YES
[2025-05-29 23:10] LABS: SQUAMOUS EPITHELIAL CELL,UR RARE /HPF (0-2)
[2025-05-29 23:18] LABS: COVID19 (SARS ANTIGEN RAPID) PRESUMPTIVE NEGATIVE (NEGATIVE); INFLUENZA TYPE A Negative For Type A (NEGATIVE); INFLUENZA TYPE B Negative For Type B (NEGATIVE)
--- NOTE | 2025-05-29 23:40 | HMCIMG ---
EXAM: CR Chest, 1 View. CLINICAL HISTORY: cp COMPARISON: None provided. FINDINGS: LUNGS: The lungs show no infiltrate or other acute finding. PLEURAL SPACES: No pleural effusion or pneumothorax. MEDIASTINUM: Cardiac size and mediastinal contours within normal limits. BONES: No aggressive appearing osseous lesion seen. IMPRESSION: No acute cardiopulmonary pathology is evident. /[place]
[2025-05-30 00:06] VITALS: BP 125/66; PULSE 75; RESP 18; TEMP 98.4; O2SAT 98
--- NOTE | 2025-05-30 01:21 | EKG ---
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
== END ==
LOC: EDH 21:42
DX: R07.89 Other chest pain (principal); E78.00 Pure hypercholesterolemia, unspecified; Z20.822 Contact with and (suspected) exposure to COVID-19; Z88.0 Allergy status to penicillin; Z88.5 Allergy status to narcotic agent; Z90.710 Acquired absence of both cervix and uterus
CPT/HCPCS: 99285; 71045; 87426; 82550; 83735; 84484 ×2; 80048; 83880; 83690; 85025; 87804 ×2; 81001; 36415; 93005; J7030

== ENCOUNTER → 2025-06-03 | Outpatient (CLI) | payer OTHER ==
[~2025-06-03] MED LIST changes: +IOHEXOL 350 MG/ML 100ML INFUS..BTL IV ONE
--- NOTE | 2025-06-03 14:28 | HMCIMG ---
EXAM: US Duplex right Lower Extremity Arteries. CLINICAL HISTORY: Peripheral vascular disease TECHNIQUE: Real-time ultrasound scan of the arteries of the right lower extremity with 2-D baker scale, color Doppler flow and spectral waveform analysis. COMPARISON: Ultrasound dated May 21, 2023 FINDINGS: COMMON FEMORAL ARTERY: No occlusion or significant stenosis. Normal SUPERFICIAL FEMORAL ARTERY: No occlusion or significant stenosis. Normal POPLITEAL ARTERY: No occlusion or significant stenosis. Normal CALF ARTERIES: Elevated velocities are seen across the right posterior tibial artery as well as the anterior tibial artery. Velocities are seen normal across the left calf arteries. IMPRESSION: 1. Findings suggest right sided runoff disease. /[place]
--- NOTE | 2025-06-10 21:42 | CARDIOLOGY ---
RAD REPORT: CORNARY CT ANGIO RADIOLOGY REPORT: CORONARY CT ANGIOGRAPHY DATE: Jun 10, 2025 QUALITY: Excellent CLINICAL HISTORY AND INDICATION: [chest pain ] TECHNIQUE: After obtaining a preliminary new car salesperson image, contrast imaging performed on an [employer]illon [id number] scanner. A dedicated, limited window, coronary imaging protocol was used, with single breath-hold, retrospective ECG gating, and automated arrhythmia rejection. 100 cc of low osmolar contrast agent: Omnipaque 350 was delivered via a 18-gauge IV catheter in the right antecubital fossa, using a power injector and followed by 60 cc of normal saline bolus as a chaser. Collimated images were reformatted at 0.5 mm intervals, and sent to an offline independent workstation for interpretation, using 3D anatomic reconstructions: Curved multiplanar reconstructions, maximum intensity projections, and multiplanar imaging. 5 mg IV metoprolol was administered prior to scanning. 0.8 mg SL nitroglycerin was given. CORONARY ARTERY DESCRIPTIONS: The coronary arteries arise in normal position. Left main coronary artery: Normal caliber vessel that bifurcates into the LAD and LCx. No stenosis. Left anterior descending coronary artery: Normal caliber vessel and gives rise to diagonal and septal branches. No stenosis. Left circumflex coronary artery: Normal caliber, nondominant and gives rise to a large OM branch. No stenosis. Right coronary artery: Large, dominant vessel giving rise to the PL and PDA branches. No stenosis. CAD-RADs: 0, absence of CAD. Thoracic Aorta: Normal diameter. Jenny Mendoza MD Cardiovascular Disease [facility] JENNY MENDOZA MD Jun 10, 2025 21:42
== END | disposition home or self-care (01) ==
LOC: RAH 09:47
PROVIDERS: ATTEND Student in an Organized Health Care Education/Training Program
DX: I73.9 Peripheral vascular disease, unspecified (principal); R07.9 Chest pain, unspecified
CPT/HCPCS: 75574; 93925; J3490; Q9967